=== PATIENT | female | born 1990 | race Caucasian/White ===

== ENCOUNTER 2019-04-06 19:18 | Emergency (ER) | payer OTHER ==
[2019-04-06 19:49] VITALS: RESP 16
[2019-04-06] MEDS ORDERED: KETOROLAC 30 MG/ML 1 ML VIAL IVP STA (21:19)
[2019-04-06] MEDS ORDERED: METOCLOPRAMIDE 5 MG/ML 2 ML VIAL IVP STA (21:19)
[2019-04-06] MEDS ORDERED: SODIUM CHLORIDE 0.9% 1,000 ML IV ONE (21:19)
[2019-04-06] MEDS ORDERED: diphenhydrAMINE 50 MG/ML 1 ML VIAL IVP STA (21:19)
--- NOTE | 2019-04-06 21:34 | ED ---
Headache HPI - General Chief Complaint: Headache Stated Complaint: headache Time Seen by Provider: 04/06/19 21:02 Mode of arrival: ambulatory Limitations: no limitations - History of Present Illness MD Complaint: headache Onset/Timin -: hour(s) Onset Description: gradual Location: left, frontal Severity: severe Quality: worst headache of life Consistency: constant Improves With: nothing Worsens With: none Context: occurred at rest Treatments Prior to Arrival: other (Ketorolac) - Related Data Home Medications Medication Instructions Recorded Confirmed Escitalopram [Lexapro] 20 mg PO DAILY 04/06/19 04/06/19 Allergies Allergy/AdvReac Type Severity Reaction Status Date / Time No Known Allergies Allergy Verified 04/06/19 21:01 Review of Systems ROS Statement: Those systems with pertinent positive or pertinent negative responses have been documented in the HPI. ROS Other: All systems not noted in ROS Statement are negative. Constitutional: Denies: fever, chills, weakness Eyes: Denies: eye pain, vision change ENT: Denies: ear pain, throat pain, hearing loss, congestion Respiratory: Denies: cough Cardiovascular: Denies: chest pain Gastrointestinal: Denies: abdominal pain, vomiting Musculoskeletal: Denies: back pain Skin: Denies: rash Neurological: Reports: headache. Denies: weakness, numbness, paresthesias, confusion, abnormal gait Past Medical History Past Medical History: No Reported History History of Any Multi-Drug Resistant Organisms: None Reported Past Surgical History: Tubal Ligation Additional Past Surgical History / Comment(s): cleft pallate, Past Psychological History: Depression Smoking Status: Current every day smoker Past Alcohol Use History: Occasional Past Drug Use History: Marijuana General Exam Limitations: no limitations General appearance: alert, in no apparent distress Head exam: Present: atraumatic, normocephalic, normal inspection Eye exam: Present: normal appearance, PERRL, EOMI. Absent: scleral icterus, conjunctival injection, nystagmus, periorbital swelling, periorbital tenderness ENT exam: Present: normal oropharynx, mucous membranes moist Neck exam: Present: normal inspection, full ROM. Absent: tenderness, meningismus Neurological exam: Present: alert, oriented X3, CN II-XII intact, normal gait. Absent: motor sensory deficit Psychiatric exam: Present: normal affect Skin exam: Present: warm, dry, intact, normal color. Absent: rash Course Vital Signs 04/06/19 04/06/19 04/06/19 19:45 19:49 22:25 Temperature 98.1 F Pulse Rate 61 58 L 108 H Respiratory 16 16 16 Rate Blood Pressure 113/74 122/96 134/74 O2 Sat by Pulse 98 100 96 Oximetry Medical Decision Making - Medical Decision Making After discussions of risks, benefits, indications, patient is declining to have a lumbar puncture performed. She does understand the rationale. She understands that she can return at any time to have the procedure performed. We discussed appropriate follow-up, further care and return parameters. Disposition Clinical Impression: Headache Disposition: HOME SELF-CARE Condition: Good Instructions (If sedation given, give patient instructions): Acute Headache (ED) Is patient prescribed a controlled substance at d/c from ED?: No Referrals: María Elena Rees NPC [Nurse Practitioner] - 1-2 days Deya Hill MD [STAFF PHYSICIAN] - 1-2 days
--- NOTE | 2019-04-06 21:39 | CT ---
EXAMINATION TYPE: CT brain wo con DATE OF EXAM: 04/06/2019 COMPARISON: 05/02/2015 HISTORY: headache CT DLP: 1098.4 mGycm. Automated Exposure Control for Dose Reduction was Utilized. TECHNIQUE: CT scan of the head is performed without contrast. FINDINGS: Ventricles and sulci appear normal. There is no mass effect nor midline shift. There is no sign of intracranial hemorrhage. The calvarium is intact. IMPRESSION: Negative head CT scan. No change.
[2019-04-06 23:32] VITALS: BP 122/90; PULSE 68; TEMP 98
== END 2019-04-06 23:34 | disposition home or self-care (01) ==
LOC: EC 19:18
DX: R51 Headache (principal); F32.9 Major depressive disorder, single episode, unspecified; F17.200 Nicotine dependence, unspecified, uncomplicated; Z53.29 Procedure and treatment not carried out because of patient's decision for other reasons; Z79.899 Other long term (current) drug therapy
CPT/HCPCS: 99284; 96374; 96375 ×2; 96361 ×2; 70450; J1200; J2765; J1885

== ENCOUNTER 2019-04-13 09:37 | Emergency (ER) | payer OTHER ==
[2019-04-13] MEDS ORDERED: ONDANSETRON 4 MG/2 ML VIAL IVP STA (10:24)
[2019-04-13] MEDS ORDERED: SODIUM CHLORIDE 0.9% 1,000 ML IV ONE (10:25)
[2019-04-13] MEDS ORDERED: DIAZEPAM 5 MG/ML 2 ML INJ IVP STA (10:25)
--- NOTE | 2019-04-13 11:04 | ED ---
Headache HPI - General Chief Complaint: Headache Stated Complaint: Headache/vomiting Time Seen by Provider: 04/13/19 10:05 Mode of arrival: ambulatory Limitations: no limitations - History of Present Illness Initial Comments: 28yo female presenting for vomiting. Patient states that she was evaluated one week prior for headache. Patient states that she has had a headache on and off since her discharge she states it is much less than when she initially presented. She states she had 3 beers last night then an episode of vomiting around 10PM. Pt states that she vomiting this morning again x3. She states she has had a headache today, dull aching no radiation. She denies fever, IVDU, upper respiratory symptoms, chest pain, dizziness or visual changes diplopia she denies any head trauma she denies muscle weakness of the upper or lower extremities. Denies any sensation differences different speech or memory. Remaining review of system negative. Pt states that her dad does have a history of brain aneursym and she wanted to ensure this was not the cause. Pt state she was told she might need an lumbar puncture at her last visit, but states she did not and does not want this today when we were speaking on history taking. - Related Data Home Medications Medication Instructions Recorded Confirmed Escitalopram [Lexapro] 20 mg PO DAILY 04/06/19 04/13/19 ALPRAZolam [Xanax] 0.25 mg PO DAILY PRN 04/13/19 04/13/19 Allergies Allergy/AdvReac Type Severity Reaction Status Date / Time No Known Allergies Allergy Verified 04/13/19 10:00 Review of Systems ROS Statement: Those systems with pertinent positive or pertinent negative responses have been documented in the HPI. ROS Other: All systems not noted in ROS Statement are negative. Past Medical History Past Medical History: No Reported History History of Any Multi-Drug Resistant Organisms: None Reported Past Surgical History: Tubal Ligation Additional Past Surgical History / Comment(s): cleft palate, Past Psychological History: Depression Smoking Status: Current every day smoker Past Alcohol Use History: Occasional Past Drug Use History: Marijuana General Exam - General Exam Comments Initial Comments: General: The patient is awake and alert, in no distress, and does not appear acutely ill. Eye: +3 mm pupils are equal, round and reactive to light, extra-ocular movements are intact. No nystagmus. There is normal conjunctiva bilaterally. No signs of icterus. Ears, nose, mouth and throat: There are moist mucous membranes and no oral lesions. Neck: The neck is supple, there is no tenderness or JVD. Cardiovascular: There is a regular rate and rhythm. No murmur, rub or gallop is appreciated. Respiratory: Lungs are clear to auscultation, respirations are non-labored, breath sounds are equal. No wheezes, stridor, rales, or rhonchi Gastrointestinal: Soft, non-distended, non-tender abdomen without masses or organomegaly noted. There is no rebound or guarding present. No CVA tenderness. Bowel sounds are unremarkable. Musculoskeletal: Normal ROM, no tenderness. Strength 5/5. Sensation intact. Pulses equal bilaterally 2+. Neurological: A&O x 3. CN II-XII intact, memory intact to immediately, intermediate and machine long goods helper recall. Able to follow simple verbal. Able to name a common object (pen). High quality, labial (pa) and lingual (la) speech. Low quality posterior pharynx/larynx (ga) voice sounds. Able to express general knowledge (days in a week). No hemineglect or inattention noted. Finger agnosia (-) and spatially oriented (identified L index finger touched R shoulder with L index finger). Light touch and temperature sensation present over the face, chest, abdomen, back, UE bilaterally, and LE bilaterally. Able to localize point during point localization b/l and extinction. No visible bulk atrophy, hypertrophy, fasciculations, or myoclonus of the UE or LE b/l. Full PROM in UE and LE b/l. Bilateral muscle strength 5/5 for the following muscles: deltoid, biceps, triceps, brachioradialis, wrist extensors/flexor, hip flexor, hip abductors/adductors, hamstrings, quadriceps, feet dorsiflexors/plantar flexors. Finger to nose, finger to the examiners finger, and heel to rush coordinated and accurate b/l. Coordinated and even demonstration of hand flip, finger to thumb, and toe tap b/l. Gait is coordinated and even in stride with tandem, toe and heel walk. Maintains balance with monopedal stance. (-) Romberg. (-) pronator drift. No nuchal rigidity. Skin: Skin is warm and dry and no rashes or lesions are noted. Psychiatric: Cooperative, appropriate mood & affect, normal judgment. Limitations: no limitations Course Vital Signs 04/13/19 04/13/19 09:52 12:25 Temperature 97.9 F 98.5 F Pulse Rate 73 57 L Respiratory 20 16 Rate Blood Pressure 133/92 111/74 O2 Sat by Pulse 100 100 Oximetry Medical Decision Making - Medical Decision Making 28-year-old female presented for on-and-off headache for the past week. Patient states she currently has a dull aching headache. Denies this coming suddenly R being worse headache of life. Patient has not had vomiting in the emergency department but did prior to arrival. Patient given antiemetics. Patient states she feels [facility] intentionally in her neck she has no difficulty moving n ext eyes photophobia negative ski and Kernig sign. Patient has no signs of toxicity she is well-appearing. Neuro exam was performed revealing no masses. CT imaging was obtained and family history of aneurysm. This revealed no aneurysm. Pt then given toradol. Pt state she has zero headache upon r eevaluation. States feeling better. I recommended outpatient primary care f/u with possible neurology referral if she has persistent symptoms. Patient is to return to emergency department if she develops fever or has worsening headache or any other concerning signs or symptoms. Patient request understand. Patient states she is comfortable discharge. Patient was discharged appearing well. I did discuss the case with Dr. Ramsey prior to discharge. - Lab Data Result diagrams: 04/13/19 10:50 04/13/19 10:50 Lab Results 04/13/19 04/13/19 04/13/19 Range/Units 10:50 10:50 10:50 WBC 6.8 (3.8-10.6) k/uL RBC 4.37 (3.80-5.40) m/uL Hgb 13.0 (11.4-16.0) gm/dL Hct 38.9 (34.0-46.0) % MCV 88.9 (80.0-100.0) fL MCH 29.8 (25.0-35.0) pg MCHC 33.5 (31.0-37.0) g/dL RDW 15.4 (11.5-15.5) % Plt Count 278 (150-450) k/uL Neutrophils % 78 % Lymphocytes % 16 % Monocytes % 4 % Eosinophils % 1 % Basophils % 0 % Neutrophils # 5.3 (1.3-7.7) k/uL Lymphocytes # 1.1 (1.0-4.8) k/uL Monocytes # 0.3 (0-1.0) k/uL Eosinophils # 0.1 (0-0.7) k/uL Basophils # 0.0 (0-0.2) k/uL Sodium 139 (137-145) mmol/L Potassium 4.1 (3.5-5.1) mmol/L Chloride 104 (98-107) mmol/L Carbon Dioxide 28 (22-30) mmol/L Anion Gap 7 mmol/L BUN 17 (7-17) mg/dL Creatinine 0.56 (0.52-1.04) mg/dL Est GFR (CKD-EPI)AfAm >90 (>60 ml/min/1.73 sqM) Est GFR (CKD-EPI)NonAf >90 (>60 ml/min/1.73 sqM) Glucose 88 (74-99) mg/dL Calcium 9.0 (8.4-10.2) mg/dL Total Bilirubin 0.7 (0.2-1.3) mg/dL AST 25 (14-36) U/L ALT 25 (9-52) U/L Alkaline Phosphatase 58 (38-126) U/L Total Protein 7.4 (6.3-8.2) g/dL Albumin 4.6 (3.5-5.0) g/dL Urine Color Urine Appearance (Clear) Urine pH (5.0-8.0) Ur Specific Tucker (1.001-1.035) Urine Protein (Negative) Urine Glucose (UA) (Negative) Urine Ketones (Negative) Urine Blood (Negative) Urine Nitrite (Negative) Urine Bilirubin (Negative) Urine Urobilinogen (<2.0) mg/dL Ur Leukocyte Esterase (Negative) Urine RBC (0-5) /hpf Urine WBC (0-5) /hpf Ur Squamous Epith Cells (0-4) /hpf Urine Mucus (None) /hpf Urine HCG, Qual Not Detected (Not Detectd) 04/13/19 Range/Units 10:50 WBC (3.8-10.6) k/uL RBC (3.80-5.40) m/uL Hgb (11.4-16.0) gm/dL Hct (34.0-46.0) % MCV (80.0-100.0) fL MCH (25.0-35.0) pg MCHC (31.0-37.0) g/dL RDW (11.5-15.5) % Plt Count (150-450) k/uL Neutrophils % % Lymphocytes % % Monocytes % % Eosinophils % % Basophils % % Neutrophils # (1.3-7.7) k/uL Lymphocytes # (1.0-4.8) k/uL Monocytes # (0-1.0) k/uL Eosinophils # (0-0.7) k/uL Basophils # (0-0.2) k/uL Sodium (137-145) mmol/L Potassium (3.5-5.1) mmol/L Chloride (98-107) mmol/L Carbon Dioxide (22-30) mmol/L Anion Gap mmol/L BUN (7-17) mg/dL Creatinine (0.52-1.04) mg/dL Est GFR (CKD-EPI)AfAm (>60 ml/min/1.73 sqM) Est GFR (CKD-EPI)NonAf (>60 ml/min/1.73 sqM) Glucose (74-99) mg/dL Calcium (8.4-10.2) mg/dL Total Bilirubin (0.2-1.3) mg/dL AST (14-36) U/L ALT (9-52) U/L Alkaline Phosphatase (38-126) U/L Total Protein (6.3-8.2) g/dL Albumin (3.5-5.0) g/dL Urine Color Yellow Urine Appearance Clear (Clear) Urine pH 7.5 (5.0-8.0) Ur Specific Tucker 1.021 (1.001-1.035) Urine Protein Trace H (Negative) Urine Glucose (UA) Negative (Negative) Urine Ketones Trace H (Negative) Urine Blood Negative (Negative) Urine Nitrite Negative (Negative) Urine Bilirubin Negative (Negative) Urine Urobilinogen 2.0 (<2.0) mg/dL Ur Leukocyte Esterase Trace H (Negative) Urine RBC 2 (0-5) /hpf Urine WBC 2 (0-5) /hpf Ur Squamous Epith Cells 3 (0-4) /hpf Urine Mucus Occasional H (None) /hpf Urine HCG, Qual (Not Detectd) Disposition Clinical Impression: Headache, Vomiting Disposition: HOME SELF-CARE Condition: Good Instructions (If sedation given, give patient instructions): Acute Headache (ED) Additional Instructions: Please use medication as discussed. Please follow-up with family doctor in the next 2 days. Please return to emergency room if the symptoms increase or worsen or for any other concerns. Is patient prescribed a controlled substance at d/c from ED?: No Referrals: Britta Arroyo III, MD [Primary Care Provider] - 1-2 days Time of Disposition: 12:08
[2019-04-13 11:05] LABS: Basophils % (A) 0 %; Eosinophils # (A) 0.1 k/uL (0-0.7); Eosinophils % (A) 1 %; HCT 38.9 % (34.0-46.0); Lymphocytes # (A) 1.1 k/uL (1.0-4.8); Lymphocytes % (A) 16 %; MCH 29.8 pg (25.0-35.0); MCHC 33.5 g/dL (31.0-37.0); MCV 88.9 fL (80.0-100.0); Mean Platelet Volume 6.9; Monocytes # (A) 0.3 k/uL (0-1.0); Monocytes % (A) 4 %; Neutrophils # (A) 5.3 k/uL (1.3-7.7); Neutrophils % (A) 78 %; Platelet Count 278 k/uL (150-450); RBC 4.37 m/uL (3.80-5.40); RDW 15.4 % (11.5-15.5); WBC 6.8 k/uL (3.8-10.6)
[2019-04-13 11:06] LABS: Appearance,Urine Clear (Clear); Bilirubin,Urine Negative (Negative); Blood,Urine Negative (Negative); Color,Urine Yellow; Glucose,Urine (UA) Negative (Negative); Ketones,Urine Trace (Negative); Leukocyte Esterase,Urine Trace (Negative); Mucus,Urine Occasional /hpf; Nitrite,Urine Negative (Negative); PH, Urine 7.5 (5.0-8.0); Protein,Urine Trace (Negative); RBC,Urine 2 /hpf (0-5); Specific Gravity,Urine 1.021 (1.001-1.035); Squamous Epithelial Cell,Urine 3 /hpf (0-4); WBC,Urine 2 /hpf (0-5)
[2019-04-13 11:19] LABS: ALT 25 U/L (9-52); AST 25 U/L (14-36); Albumin 4.6 g/dL (3.5-5.0); Alkaline Phosphatase 58 U/L (38-126); Anion Gap 7 mmol/L; Blood Urea Nitrogen 17 mg/dL (7-17); Carbon Dioxide 28 mmol/L (22-30); Chloride 104 mmol/L (98-107); Glucose 88 mg/dL (74-99); Potassium 4.1 mmol/L (3.5-5.1); Sodium 139 mmol/L (137-145); Total Bilirubin 0.7 mg/dL (0.2-1.3); Total Protein 7.4 g/dL (6.3-8.2)
--- NOTE | 2019-04-13 11:50 | CT ---
CT angiogram of the [facility] [place] HISTORY: Family history of brain aneurysm Helical acquisition through the brain during dynamic administration of 50 cc Isovue 370 IV. Three-dim ensional reconstructions performed on an alternate workstation. Automated exposure control for dose r eduction. DLP 1294.[address] brain 04/06/2019 Anterior posterior circulation are patent, the right vertebral artery is dominant. No evident aneurys m, dissection, or embolism. Postop changes are noted to the maxillary sinuses. Inflammatory change pr esent in the ethmoid air cells. No abnormal enhancement following contrast administration. IMPRESSION: Unremarkable [facility] [place] [facility] [place] CTA
[2019-04-13] MEDS ORDERED: KETOROLAC 30 MG/ML 1 ML VIAL IVP STA (11:52)
[2019-04-13 12:26] VITALS: BP 111/74; PULSE 57; RESP 16; TEMP 98.5
== END 2019-04-13 12:45 | disposition home or self-care (01) ==
LOC: EC 09:37
DX: R51 Headache (principal); R11.10 Vomiting, unspecified; F32.9 Major depressive disorder, single episode, unspecified; F17.200 Nicotine dependence, unspecified, uncomplicated; Z79.899 Other long term (current) drug therapy
CPT/HCPCS: 36415; 80053; 85025; 81001; 81025; 70496; 99284; 96374; 96375 ×2; 96361 ×2; J3360; J2405; J1885; Q9967

== ENCOUNTER → 2019-12-29 | Day surgery (SDC) | payer OTHER ==
[2019-12-28 10:41] VITALS: BMI 25.2
--- NOTE | 2019-12-28 17:48 | P.HPOB ---
History of Present Illness H&P Date: 12/28/19 Chief Complaint: menorrhagia 29 year old presents for D&C hysteroscopy and endometrial ablation with NovaSure. Review of Systems All systems: negative Constitutional: Denies chills, Denies fever Eyes: denies blurred vision, denies pain Ears, nose, mouth and throat: Denies headache, Denies sore throat Cardiovascular: Denies chest pain, Denies shortness of breath Respiratory: Denies cough Gastrointestinal: Denies abdominal pain, Denies diarrhea, Denies nausea, Denies vomiting Genitourinary: Denies dysuria, Denies hematuria Musculoskeletal: Denies myalgias Integumentary: Denies pruritus, Denies rash Neurological: Denies numbness, Denies weakness Psychiatric: Denies anxiety, Denies depression Endocrine: Denies fatigue, Denies weight change Past Medical History Past Medical History: No Reported History Additional Past Medical History / Comment(s): heavy periods History of Any Multi-Drug Resistant Organisms: None Reported Past Surgical History: Tubal Ligation Additional Past Surgical History / Comment(s): cleft palate Past Anesthesia/Blood Transfusion Reactions: No Reported Reaction Smoking Status: Current every day smoker - Past Family History Mother Family Medical History: No Reported History Medications and Allergies Home Medications Medication Instructions Recorded Confirmed Type Escitalopram [Lexapro] 10 mg PO DAILY 04/06/19 12/28/19 History clonazePAM [KlonoPIN] 0.5 mg PO DAILY PRN 12/28/19 12/28/19 History Allergies Allergy/AdvReac Type Severity Reaction Status Date / Time No Known Allergies Allergy Verified 12/28/19 10:35 Exam Osteopathic Statement: *. No significant issues noted on an osteopathic structural exam other than those noted in the History and Physical/Consult. Intake and Output 12/28/19 12/28/19 12/28/19 06:59 14:59 22:59 Other: Weight 73.028 kg HEart: RRR Lungs: CTAB Abdomen: soft, nontender Extremeties: neg jacque's Assessment and Plan (1) Menorrhagia Status: Acute Code(s): N92.0 - EXCESSIVE AND FREQUENT MENSTRUATION WITH REGULAR CYCLE SNOMED Code(s): 304661061 Plan: 1. D&C hysteroscopy and endometrial ablation with NovaSure
[~2019-12-29] MED LIST: DEXAMETHASONE SOD PHOSPHATE 10 MG/ML 1 ML VIAL IV ONE; HYDROmorphone 0.5 MG/0.5 ML SYRINGE IVP PRN; KETOROLAC 30 MG/ML 1 ML VIAL IVP SCH; KETOROLAC 30 MG/ML 1 ML VIAL ONE; LACTATED RINGERS 1,000 ML IV SCH; LIDOCAINE 1% (10MG/ML) FOR IV START INTRADERMA PRN; METOCLOPRAMIDE 5 MG/ML 2 ML VIAL IVP PRN; MIDAZOLAM 2 MG/2 ML VIAL IV PRN; MIDAZOLAM 2 MG/2 ML VIAL ONE; ONDANSETRON 4 MG/2 ML VIAL IVP ONE; PROPOFOL 10 MG/ML 20 ML VIAL IV ONE; Pre Op ABX Message 1 EACH MISC MISCELLANE ONE; SODIUM CHLORIDE 0.9% 1,000 ML IV ONE; fentaNYL (PF) 50 MCG/ML 2 ML AMP ONE
--- NOTE | 2019-12-29 10:13 | P.OP ---
Date of Procedure: 12/29/19 Preoperative Diagnosis: 1. menorrhagia Postoperative Diagnosis: 1. Menorrhagia Procedure(s) Performed: D&C, hysteroscopy, endometrial ablation with NovaSure Anesthesia: MAC Surgeon: Bonita Kebede Estimated Blood Loss (ml): 3 IV fluids (ml): 300 Urine output (ml): 0 Pathology: other (Endometrial curettings) Condition: stable Disposition: PACU Operative Findings: Uterus sounded 8 cm. Cavity length 5.5 cm, width 3.5 cm, power 106 W, time of ablation 58 seconds. Adequate ablation after NovaSure. Description of Procedure: Patient is taken the operating room where general anesthesia was obtained without difficulty. She was prepped and draped in normal sterile fashion dorsal lithotomy position, legs placed in the candy cane stirrups. Bladder was drained of all urine. Weighted speculum placed in the vagina and the anterior lip the cervix was grasped with serial tooth tenaculum. The uterus sounded to 8 cm and the cervix under 2.5 cm making the cavity length 5.5 cm. The cervix was dilated to #8 Hegar dilator. Hysteroscopy was then performed. Both ostia were visualized and there was a smooth contour of the uterus. Sharp curet was then gently used to obtain endometrial curettings. The NovaSure was introduced into the uterus with a cavity length of 5.5 cm, width 3.5 cm. after cavity assessment was passed, the time of ablation was 58 seconds at 106 W. Hysteroscopy was again performed and adequate ablation was noted. All instruments removed from the vagina. Patient tolerated the procedure well, sponge and instrument counts were correct 2 and she was taken to recovery in stable condition.
[2019-12-29 10:28] VITALS: TEMP 97.2
[2019-12-29 10:33] VITALS: RESP 16
[2019-12-29 11:25] VITALS: BP 113/72; PULSE 53
== END | disposition home or self-care (01) ==
LOC: OR 08:27
PROVIDERS: ATTEND Obstetrics & Gynecology
DX: N92.0 Excessive and frequent menstruation with regular cycle (principal); Z98.51 Tubal ligation status; N85.9 Noninflammatory disorder of uterus, unspecified; F17.210 Nicotine dependence, cigarettes, uncomplicated; Z79.899 Other long term (current) drug therapy
CPT/HCPCS: 81025; 88305; 58563; J2250; J1100; J2405; J3010; J1885; J2704

== ENCOUNTER 2020-03-26 20:06 | Observation (INO) | payer OTHER ==
--- NOTE | 2020-03-26 20:49 | ED ---
General Adult HPI - General Chief complaint: Abdominal Pain Stated complaint: Abd pain Time Seen by Provider: 03/26/20 20:40 Source: patient Mode of arrival: ambulatory Limitations: no limitations - History of Present Illness Initial comments: Patient presents to the ED complaining of having constant epigastric abdominal pain for the past 3 days or so. Patient states that her pain is worse with ambulation. Patient also reports having greener than usual stool recently. Patient denies trauma or injury, radiation of her pain, fever or chills, chest pain, dyspnea, cough or cold symptoms, lower abdominal pain, back or flank pain, nausea or vomiting, diarrhea or constipation, bloody or melanotic stool, dysuria or urinary symptoms, or any other symptoms or complaints. Patient states that she has had a tubal ligation in the past. - Related Data Home Medications Medication Instructions Recorded Confirmed clonazePAM [KlonoPIN] 0.5 mg PO BID PRN 12/28/19 03/26/20 Escitalopram [Lexapro] 10 mg PO DAILY 03/26/20 03/26/20 buPROPion HCL [Wellbutrin SR] 150 mg PO QAM 03/26/20 03/26/20 Allergies Allergy/AdvReac Type Severity Reaction Status Date / Time No Known Allergies Allergy Verified 03/26/20 22:11 Review of Systems ROS Statement: Those systems with pertinent positive or pertinent negative responses have been documented in the HPI. ROS Other: All systems not noted in ROS Statement are negative. Past Medical History Past Medical History: No Reported History Additional Past Medical History / Comment(s): heavy periods History of Any Multi-Drug Resistant Organisms: None Reported Past Surgical History: Tubal Ligation, Uterine Ablation Additional Past Surgical History / Comment(s): cleft palate Past Anesthesia/Blood Transfusion Reactions: No Reported Reaction Past Psychological History: ADD/ADHD, Anxiety, Depression Smoking Status: Current every day smoker Past Alcohol Use History: Occasional Past Drug Use History: Marijuana - Past Family History Mother Family Medical History: No Reported History General Exam Limitations: no limitations General appearance: alert, in no apparent distress Head exam: Present: atraumatic, normocephalic Eye exam: Present: normal appearance, EOMI ENT exam: Present: mucous membranes moist Neck exam: Present: other (Trachea is in midline) Respiratory exam: Present: normal lung sounds bilaterally. Absent: respiratory distress, wheezes, rales, rhonchi Cardiovascular Exam: Present: regular rate, normal rhythm, normal heart sounds, other (Normal radial pulses bilaterally) GI/Abdominal exam: Present: soft, normal bowel sounds, other (Moderate epigastric abdominal tenderness). Absent: distended, guarding, rebound Extremities exam: Absent: tenderness, pedal edema, calf tenderness Back exam: Absent: CVA tenderness (R), CVA tenderness (L) Neurological exam: Present: alert, oriented X3. Absent: motor sensory deficit Psychiatric exam: Present: normal affect, normal mood Skin exam: Present: warm, dry, intact, normal color Course Vital Signs 03/26/20 03/26/20 20:17 22:26 Temperature 97.3 F L Pulse Rate 72 63 Respiratory 18 18 Rate Blood Pressure 115/71 105/73 O2 Sat by Pulse 97 98 Oximetry - Reevaluation(s) Reevaluation #1: 03/26/20 22:35 Case, H&P and test results/ultrasound findings were discussed with Dr. Cesar (gen surg). She recommends/accepts hospital admission. She recommends repeating the patient's liver function tests in the morning. She has no further recommendations at this time. 03/26/20 22:55 Patient denies development of any new pain or symptoms while in the ED. Patient states that her pain has not improved with the GI cocktail that she was given in the ED. I have ordered a dose of IV morphine for the patient. Patient is aware of her test results and my discussion with Dr. Cesar as above. She agrees with hospital admission at this time. Medical Decision Making - Medical Decision Making Given the patient's epigastric tenderness and gallbladder ultrasound findings of wall thickening and pericholecystic fluid, will admit the patient to the hospital for further evaluation and monitoring out of concern for possible acalculous cholecystitis. Patient was given a dose of IV Zosyn in the ED. Dr. Cesar has accepted hospital admission. - Lab Data Result diagrams: 03/26/20 20:47 03/26/20 20:47 Lab Results 03/26/20 03/26/20 03/26/20 Range/Units 20:41 20:41 20:47 WBC 4.0 (3.8-10.6) k/uL RBC 4.19 (3.80-5.40) m/uL Hgb 11.6 (11.4-16.0) gm/dL Hct 37.3 (34.0-46.0) % MCV 89.0 (80.0-100.0) fL MCH 27.8 (25.0-35.0) pg MCHC 31.2 (31.0-37.0) g/dL RDW 15.2 (11.5-15.5) % Plt Count 269 (150-450) k/uL Neutrophils % 54 % Lymphocytes % 34 % Monocytes % 7 % Eosinophils % 3 % Basophils % 1 % Neutrophils # 2.2 (1.3-7.7) k/uL Lymphocytes # 1.4 (1.0-4.8) k/uL Monocytes # 0.3 (0-1.0) k/uL Eosinophils # 0.1 (0-0.7) k/uL Basophils # 0.0 (0-0.2) k/uL Sodium (137-145) mmol/L Potassium (3.5-5.1) mmol/L Chloride (98-107) mmol/L Carbon Dioxide (22-30) mmol/L Anion Gap mmol/L BUN (7-17) mg/dL Creatinine (0.52-1.04) mg/dL Est GFR (CKD-EPI)AfAm (>60 ml/min/1.73 sqM) Est GFR (CKD-EPI)NonAf (>60 ml/min/1.73 sqM) Glucose (74-99) mg/dL Calcium (8.4-10.2) mg/dL Total Bilirubin (0.2-1.3) mg/dL AST (14-36) U/L ALT (4-34) U/L Alkaline Phosphatase (38-126) U/L Total Protein (6.3-8.2) g/dL Albumin (3.5-5.0) g/dL Lipase (23-300) U/L Urine Color Light Yellow Urine Appearance Clear (Clear) Urine pH 6.5 (5.0-8.0) Ur Specific [place] 1.008 (1.001-1.035) Urine Protein Negative (Negative) Urine Glucose (UA) Negative (Negative) Urine Ketones Negative (Negative) Urine Blood Negative (Negative) Urine Nitrite Negative (Negative) Urine Bilirubin Negative (Negative) Urine Urobilinogen <2.0 (<2.0) mg/dL Ur Leukocyte Esterase Negative (Negative) Urine HCG, Qual Not Detected (Not Detectd) 03/26/20 Range/Units 20:47 WBC (3.8-10.6) k/uL RBC (3.80-5.40) m/uL Hgb (11.4-16.0) gm/dL Hct (34.0-46.0) % MCV (80.0-100.0) fL MCH (25.0-35.0) pg MCHC (31.0-37.0) g/dL RDW (11.5-15.5) % Plt Count (150-450) k/uL Neutrophils % % Lymphocytes % % Monocytes % % Eosinophils % % Basophils % % Neutrophils # (1.3-7.7) k/uL Lymphocytes # (1.0-4.8) k/uL Monocytes # (0-1.0) k/uL Eosinophils # (0-0.7) k/uL Basophils # (0-0.2) k/uL Sodium 138 (137-145) mmol/L Potassium 3.4 L (3.5-5.1) mmol/L Chloride 107 (98-107) mmol/L Carbon Dioxide 26 (22-30) mmol/L Anion Gap 5 mmol/L BUN 12 (7-17) mg/dL Creatinine 0.65 (0.52-1.04) mg/dL Est GFR (CKD-EPI)AfAm >90 (>60 ml/min/1.73 sqM) Est GFR (CKD-EPI)NonAf >90 (>60 ml/min/1.73 sqM) Glucose 100 H (74-99) mg/dL Calcium 8.2 L (8.4-10.2) mg/dL Total Bilirubin 0.3 (0.2-1.3) mg/dL AST 27 (14-36) U/L ALT 26 (4-34) U/L Alkaline Phosphatase 48 (38-126) U/L Total Protein 6.5 (6.3-8.2) g/dL Albumin 3.7 (3.5-5.0) g/dL Lipase 131 (23-300) U/L Urine Color Urine Appearance (Clear) Urine pH (5.0-8.0) Ur Specific [place] (1.001-1.035) Urine Protein (Negative) Urine Glucose (UA) (Negative) Urine Ketones (Negative) Urine Blood (Negative) Urine Nitrite (Negative) Urine Bilirubin (Negative) Urine Urobilinogen (<2.0) mg/dL Ur Leukocyte Esterase (Negative) Urine HCG, Qual (Not Detectd) - Radiology Data Radiology results: report reviewed (Gallbladder ultrasound: Severe wall thickening of the gallbladder with pericholecystic fluid; correlate for acalculous cholecystitis) Disposition Clinical Impression: Abdominal pain Narrative: Possible acute cholecystitis Disposition: ADMITTED IP TO THIS [facility] Condition: Stable Is patient prescribed a controlled substance at d/c from ED?: No Referrals: Britta Arroyo III, MD [Primary Care Provider] - 1-2 days Time of Disposition: 22:36
[2020-03-26] MEDS ORDERED: MAG HYDROX/AL HYDROX/SIMETH 30 ML, HYOSCYAMINE ELIXIR 10 ML, LIDOCAINE VISCOUS 2% 10 ML PO STA ×3 (20:51)
[2020-03-26 21:04] LABS: Basophils % (A) 1 %; Eosinophils # (A) 0.1 k/uL (0-0.7); Eosinophils % (A) 3 %; HCT 37.3 % (34.0-46.0); HGB 11.6 gm/dL (11.4-16.0); Lymphocytes # (A) 1.4 k/uL (1.0-4.8); Lymphocytes % (A) 34 %; MCH 27.8 pg (25.0-35.0); MCHC 31.2 g/dL (31.0-37.0); Mean Platelet Volume 7.8; Monocytes # (A) 0.3 k/uL (0-1.0); Monocytes % (A) 7 %; Neutrophils # (A) 2.2 k/uL (1.3-7.7); Neutrophils % (A) 54 %; Platelet Count 269 k/uL (150-450); RBC 4.19 m/uL (3.80-5.40); RDW 15.2 % (11.5-15.5)
[2020-03-26 21:05] LABS: Appearance,Urine Clear (Clear); Bilirubin,Urine Negative (Negative); Blood,Urine Negative (Negative); Color,Urine Light Yellow; Glucose,Urine (UA) Negative (Negative); Ketones,Urine Negative (Negative); Leukocyte Esterase,Urine Negative (Negative); Nitrite,Urine Negative (Negative); PH, Urine 6.5 (5.0-8.0); Protein,Urine Negative (Negative); Specific Gravity,Urine 1.008 (1.001-1.035); Urobilinogen,Urine <2.0 mg/dL (<2.0)
[2020-03-26 21:16] LABS: ALT 26 U/L (4-34); AST 27 U/L (14-36); African American GFR (CKD) >90 (>60 ml/min/1.73 sqM); Albumin 3.7 g/dL (3.5-5.0); Alkaline Phosphatase 48 U/L (38-126); Anion Gap 5 mmol/L; Blood Urea Nitrogen 12 mg/dL (7-17); Calcium 8.2 mg/dL (8.4-10.2); Carbon Dioxide 26 mmol/L (22-30); Chloride 107 mmol/L (98-107); Glucose 100 mg/dL (74-99); Non-African American GFR(CKD) >90 (>60 ml/min/1.73 sqM); Potassium 3.4 mmol/L (3.5-5.1); Sodium 138 mmol/L (137-145); Total Bilirubin 0.3 mg/dL (0.2-1.3); Total Protein 6.5 g/dL (6.3-8.2)
--- NOTE | 2020-03-26 21:46 | US ---
EXAMINATION TYPE: US gallbladder DATE OF EXAM: 03/26/2020 COMPARISON: NONE CLINICAL HISTORY: Upper abdominal pain. RUQ pain 3 days EXAM MEASUREMENTS: Liver Length: 16.4 cm Gallbladder Wall: 1.0 cm CBD: 0.4 cm Right Kidney: 11.5 x 5.2 x 5.5 cm Pancreas: Tail obscured by overlying bowel gas, visualized portions wnl Liver: wnl Gallbladder: Gallbladder wall is thickened with pericholecystic fluid visualized. No stones visualiz ed Evidence for sonographic Tinoco's sign: Yes CBD: wnl Right Kidney: Prominent, hyperechoic medullary pyramids which is a nonspecific finding. IMPRESSION: 1. Severe wall thickening of the gallbladder with pericholecystic fluid. Correlate for acalculous cho lecystitis.
[2020-03-26] MEDS ORDERED: NALOXONE 0.4 MG/ML 1 ML VIAL IV PRN (22:36)
[2020-03-26] MEDS ORDERED: ONDANSETRON 4 MG/2 ML VIAL IVP PRN (22:36)
[2020-03-26] MEDS ORDERED: PIPERACILLIN-TAZOBACTAM 3.375 GM in SODIUM CHLORIDE 0.9% 100 ML IVPB STA (22:38)
[2020-03-26] MEDS ORDERED: SODIUM CHLORIDE 0.9% 1,000 ML IV SCH (22:45)
[2020-03-26] MEDS ORDERED: MORPHINE SULFATE 4 MG/ML SYRINGE IVP STA (22:53)
[2020-03-27] MEDS: MORPHINE SULFATE 4 MG/ML SYRINGE IV PRN ×3 (03:44→13:34)
[2020-03-27 06:50] LABS: Basophils % (A) 0 %; Eosinophils # (A) 0.1 k/uL (0-0.7); Eosinophils % (A) 3 %; HCT 35.2 % (34.0-46.0); HGB 11.5 gm/dL (11.4-16.0); Hypochromasia Slight; Lymphocytes # (A) 1.8 k/uL (1.0-4.8); Lymphocytes % (A) 43 %; MCH 28.5 pg (25.0-35.0); MCHC 32.8 g/dL (31.0-37.0); MCV 86.9 fL (80.0-100.0); Monocytes # (A) 0.3 k/uL (0-1.0); Monocytes % (A) 6 %; Neutrophils # (A) 1.9 k/uL (1.3-7.7); Neutrophils % (A) 46 %; Platelet Count 255 k/uL (150-450); RBC 4.05 m/uL (3.80-5.40); RDW 15.1 % (11.5-15.5); WBC 4.1 k/uL (3.8-10.6)
[2020-03-27 07:00] LABS: ALT 24 U/L (4-34); AST 24 U/L (14-36); African American GFR (CKD) >90 (>60 ml/min/1.73 sqM); Albumin 3.5 g/dL (3.5-5.0); Alkaline Phosphatase 52 U/L (38-126); Anion Gap 4 mmol/L; Blood Urea Nitrogen 12 mg/dL (7-17); Carbon Dioxide 28 mmol/L (22-30); Chloride 108 mmol/L (98-107); Glucose 83 mg/dL (74-99); Non-African American GFR(CKD) >90 (>60 ml/min/1.73 sqM); Potassium 3.6 mmol/L (3.5-5.1); Sodium 140 mmol/L (137-145); Total Bilirubin 0.4 mg/dL (0.2-1.3); Total Protein 6.3 g/dL (6.3-8.2)
--- NOTE | 2020-03-27 09:42 | P.GSHP ---
History of Present Illness H&P Date: 03/27/20 The patient is a 29-year-old female who is been having pain in the abdomen for the last 3-4 days. She tried to wait it out but it got progressively worse and was radiating through to the back. On the car ride and bumps caused increasing pain. She came into the ER and ultrasound shows acute cholecystitis. She's never had gallbladder attacks in the past. Denies fevers or chills. Has had some looser stools. Denies jaundice, tea-colored urine or acholic stool, no blood in the stool or dark tarry stool. - Review of Systems All systems: negative Past Medical History Past Medical History: No Reported History Additional Past Medical History / Comment(s): heavy periods History of Any Multi-Drug Resistant Organisms: None Reported Past Surgical History: Tubal Ligation, Uterine Ablation Additional Past Surgical History / Comment(s): cleft palate Past Anesthesia/Blood Transfusion Reactions: No Reported Reaction Past Psychological History: ADD/ADHD, Anxiety, Depression Smoking Status: Current every day smoker Past Alcohol Use History: Occasional Additional Past Alcohol Use History / Comment(s): smoker for 10 years <1/2ppd Past Drug Use History: Marijuana - Past Family History Mother Family Medical History: No Reported History Medications and Allergies Home Medications Medication Instructions Recorded Confirmed Type clonazePAM [KlonoPIN] 0.5 mg PO BID PRN 12/28/19 03/26/20 History Escitalopram [Lexapro] 10 mg PO DAILY 03/26/20 03/26/20 History buPROPion HCL [Wellbutrin SR] 150 mg PO QAM 03/26/20 03/26/20 History Allergies Allergy/AdvReac Type Severity Reaction Status Date / Time No Known Allergies Allergy Verified 03/26/20 22:11 Surgical - Exam Osteopathic Statement: *. No significant issues noted on an osteopathic structural exam other than those noted in the History and Physical/Consult. Vital Signs Temp Pulse Resp BP Pulse Ox 97.3 F L 72 18 115/71 97 03/26/20 20:17 03/26/20 20:17 03/26/20 20:17 03/26/20 20:17 03/26/20 20:17 - General well developed, well nourished, no distress - Eyes normal ocular movement - Neck trachea midline - Respiratory normal respiratory effort, clear to auscultation - Cardiovascular Rhythm: regular - Abdomen Abdomen: soft, tender (Right upper quadrant), guarding (Mild voluntary), no rebound - Psychiatric oriented to time, oriented to person, oriented to place, speech is normal, memory intact Results - Labs 03/27/20 05:54 03/27/20 05:54 Abnormal Lab Results - Last 24 Hours (Table) 03/26/20 03/27/20 Range/Units 20:47 05:54 Potassium 3.4 L (3.5-5.1) mmol/L Chloride 108 H (98-107) mmol/L Glucose 100 H (74-99) mg/dL Calcium 8.2 L 8.0 L (8.4-10.2) mg/dL Diabetes panel 03/26/20 03/27/20 Range/Units 20:47 05:54 Sodium 138 140 (137-145) mmol/L Potassium 3.4 L 3.6 (3.5-5.1) mmol/L Chloride 107 108 H (98-107) mmol/L Carbon Dioxide 26 28 (22-30) mmol/L BUN 12 12 (7-17) mg/dL Creatinine 0.65 0.76 (0.52-1.04) mg/dL Glucose 100 H 83 (74-99) mg/dL Calcium 8.2 L 8.0 L (8.4-10.2) mg/dL AST 27 24 (14-36) U/L ALT 26 24 (4-34) U/L Alkaline Phosphatase 48 52 (38-126) U/L Total Protein 6.5 6.3 (6.3-8.2) g/dL Albumin 3.7 3.5 (3.5-5.0) g/dL Calcium panel 03/26/20 03/27/20 Range/Units 20:47 05:54 Calcium 8.2 L 8.0 L (8.4-10.2) mg/dL Albumin 3.7 3.5 (3.5-5.0) g/dL Pituitary panel 03/26/20 03/27/20 Range/Units 20:47 05:54 Sodium 138 140 (137-145) mmol/L Potassium 3.4 L 3.6 (3.5-5.1) mmol/L Chloride 107 108 H (98-107) mmol/L Carbon Dioxide 26 28 (22-30) mmol/L BUN 12 12 (7-17) mg/dL Creatinine 0.65 0.76 (0.52-1.04) mg/dL Glucose 100 H 83 (74-99) mg/dL Calcium 8.2 L 8.0 L (8.4-10.2) mg/dL Adrenal panel 03/26/20 03/27/20 Range/Units 20:47 05:54 Sodium 138 140 (137-145) mmol/L Potassium 3.4 L 3.6 (3.5-5.1) mmol/L Chloride 107 108 H (98-107) mmol/L Carbon Dioxide 26 28 (22-30) mmol/L BUN 12 12 (7-17) mg/dL Creatinine 0.65 0.76 (0.52-1.04) mg/dL Glucose 100 H 83 (74-99) mg/dL Calcium 8.2 L 8.0 L (8.4-10.2) mg/dL Total Bilirubin 0.3 0.4 (0.2-1.3) mg/dL AST 27 24 (14-36) U/L ALT 26 24 (4-34) U/L Alkaline Phosphatase 48 52 (38-126) U/L Total Protein 6.5 6.3 (6.3-8.2) g/dL Albumin 3.7 3.5 (3.5-5.0) g/dL - Imaging US - abdomen: report reviewed Assessment and Plan (1) Acute cholecystitis Current Visit: Yes Status: Acute Code(s): K81.0 - ACUTE CHOLECYSTITIS SNOMED Code(s): 53242658 Plan: With the pain, gallbladder wall thickening and pericholecystic fluid likely has a small stone impacted into the cystic duct are Brady's pouch. Recommended laparoscopic cholecystectomy. The procedure, risks, complications were discussed. Questions were encouraged and answered. I'll do that for her today. If she tolerates a surgery postoperatively, we'll let her go home later today.
[2020-03-27] MEDS ORDERED: PROPOFOL 10 MG/ML 20 ML VIAL IV ONE (14:10)
[2020-03-27] MEDS ORDERED: ONDANSETRON 4 MG/2 ML VIAL ONE (14:10)
[2020-03-27] MEDS ORDERED: SUCCINYLCHOLINE CHLORIDE 100 MG/5 ML SYR IV ONE (14:10)
[2020-03-27] MEDS ORDERED: NEOSTIGMINE 1 MG/ML 10 ML VIAL ONE (14:10)
[2020-03-27] MEDS ORDERED: ceFAZolin 1,000 MG VIAL ONE (14:10)
[2020-03-27] MEDS ORDERED: ROCURONIUM BROMIDE 10 MG/ML 5 ML VIAL IV ONE (14:10)
[2020-03-27] MEDS ORDERED: MIDAZOLAM 2 MG/2 ML VIAL ONE (14:10)
[2020-03-27] MEDS ORDERED: KETOROLAC 30 MG/ML 1 ML VIAL ONE (14:10)
[2020-03-27] MEDS ORDERED: HYDROmorphone (PF) 1 MG/ML ONE (14:10)
[2020-03-27] MEDS ORDERED: LIDOCAINE 1% INJ 10MG/ML (20 ML MDV) ONE (14:10)
[2020-03-27] MEDS ORDERED: IV FLUID CONTINUATION 500 ML IV ONE (14:10)
[2020-03-27] MEDS ORDERED: DEXAMETHASONE SOD PHOS (MDV) 100 MG/10 ML VIAL ONE (14:10)
[2020-03-27] MEDS ORDERED: fentaNYL (PF) 50 MCG/ML 2 ML AMP ONE (14:10)
[2020-03-27] MEDS ORDERED: HYDROmorphone 0.5 MG/0.5 ML SYRINGE IVP PRN (14:12)
[2020-03-27] MEDS ORDERED: LACTATED RINGERS 1,000 ML IV SCH (14:15)
[2020-03-27] MEDS ORDERED: BUPIVACAIN-EPI 0.25%-1:200,000 30 ML VIAL SQ ONE ×3 (14:16→14:32)
[2020-03-27] MEDS ORDERED: LACTATED RINGERS 1,000 ML IV ONE (14:59)
--- NOTE | 2020-03-27 15:27 | P.OP ---
Date of Procedure: 03/27/20 Preoperative Diagnosis: Acute cholecystitis Postoperative Diagnosis: Acute cholecystitis Procedure(s) Performed: Laparoscopic cholecystectomy Anesthesia: AMINA Surgeon: Re Cesar Estimated Blood Loss (ml): 75 Pathology: other (Gallbladder) Condition: stable Disposition: PACU Indications for Procedure: The patient presented with a several-day history of abdominal pain. Ultrasound showed evidence of acute cholecystitis with gallbladder wall thickening and pericholecystic fluid Description of Procedure: The patient's taken the operative suite where she is prepped and draped in the usual sterile manner under general endotracheal anesthetic. An infraumbilical incision was made. The fascia was grasped and incised. The peritoneum was grasped and incised. A finger sweep was carried out. A balloon trocar is inserted and pneumoperitoneum was established with CO2 gas. There is noted to be a small area of pulsatile bleeding from the omentum. The area was identified and grasped with a grasper and cauterized. There was some persistent bleeding. Therefore the pneumoperitoneum was released. Retractors were placed at the umbilical trocar site and the omentum was brought up. It was suture ligated with 0 Vicryl. The omentum was placed back into the abdominal cavity. Pneumoperitoneum was established with CO2 gas. No further signs of bleeding were identified. The fundus of the gallbladder is grasped and retracted superiorly. Rubén's pouch is identified, its grasped and retracted laterally. The gallbladder wall was edematous. No evidence of gangrenous change. The cystic artery and cystic duct are dissected free of the node. They are triply clipped and cut. The gallbladder is then dissected free from the liver bed. Small bleeding points were controlled with electrocautery. The gallbladder is removed through the umbilical port site. The liver bed is reexamined. Small bleeding points are controlled with electrocautery. The omentum was reexamined and noted be hemostatic. Some old blood was irrigated and aspirated. The liver bed was reexamined. This this irrigant was suctioned out. The pneumoperitoneum was released. The trochars were removed. The fascia at the umbilicus was closed with 0 Vicryl. The skin incisions were closed with 4-0 Vicryl in a subcuticular manner. Steri-Strips and dressings were applied. She tolerated the procedure without difficulty and was taken to recovery room in satisfactory condition. According to or personnel, all counts were correct.
[2020-03-27 15:47] VITALS: RESP 16
[2020-03-27 16:19] VITALS: TEMP 97.5
[2020-03-27 17:02] VITALS: BP 103/58; PULSE 58
== END 2020-03-27 18:36 | disposition home or self-care (01) ==
LOC: EC 20:06 → 5NMEDONC 22:36 → UNDOADMOB 03-27
PROVIDERS: ADMIT Surgery; ATTEND Surgery
DX: K81.0 Acute cholecystitis (principal); K81.1 Chronic cholecystitis; Z03.818 Encounter for observation for suspected exposure to other biological agents ruled out; N92.0 Excessive and frequent menstruation with regular cycle; F90.9 Attention-deficit hyperactivity disorder, unspecified type; F41.9 Anxiety disorder, unspecified; F32.9 Major depressive disorder, single episode, unspecified; F17.210 Nicotine dependence, cigarettes, uncomplicated; Z79.899 Other long term (current) drug therapy; Z87.730 Personal history of (corrected) cleft lip and palate; Z98.51 Tubal ligation status
CPT/HCPCS: 47562; 96376; 96366; 96365; 96375; 99285; 36415; 88304; 80053 ×2; 83690; 85025 ×2; 81003; 81025; 87635; 76705; G0378 ×2; J2543; J2250; J2270 ×2; J2710; J2405; J0690; J2001; J3010; J1885; J1170 ×2; J1100; J0330; J2704

== ENCOUNTER 2020-09-30 15:19 | Emergency (ER) | payer OTHER ==
--- NOTE | 2020-09-30 15:47 | ED ---
Female Urogenital HPI - General Chief complaint: Urogenital Stated complaint: trouble urinating Time Seen by Provider: 09/30/20 15:31 Source: patient Mode of arrival: ambulatory Limitations: no limitations - History of Present Illness Initial comments: Patient is 30-year-old female presenting to the emergency department with chief complaint of unable to urinate. Patient states she has not been able to urinate today. Patient states 4 days ago she was diagnosed with a urinary tract infection and was started on Macrobid. Patient reports her UTI symptoms resolved, however today she has not been able to urinate. Patient states she's been otherwise drinking plenty of water. She does report urgency and the feeling of needing to urinate but is not able to. She states she has been sitting on a toilet for quite some time and nothing comes up. She is denying any vaginal discharge, bleeding or foul smell. She does report history of tubal ligation and uterine ablation so she has no concern for . No concern for STDs. Denies any night sweats or chills per does report suprapubic abdominal discomfort due to having a full bladder. She denies any nausea or vomiting. Denies diarrhea constipation. She denies any back pain, saddle anesthesia or bowel incontinence. Denies any trauma to her back. No numbness or tingling to the lower extremities. - Related Data Home Medications Medication Instructions Recorded Confirmed clonazePAM [KlonoPIN] 0.5 mg PO BID PRN 12/28/19 03/26/20 Escitalopram [Lexapro] 10 mg PO DAILY 03/26/20 03/26/20 buPROPion HCL [Wellbutrin SR] 150 mg PO QAM 03/26/20 03/26/20 Previous Rx's Medication Instructions Recorded traMADol HCL 1 - 2 mg PO Q4-6H PRN #20 tablet 03/27/20 Allergies Allergy/AdvReac Type Severity Reaction Status Date / Time No Known Allergies Allergy Verified 09/30/20 15:29 Review of Systems ROS Statement: Those systems with pertinent positive or pertinent negative responses have been documented in the HPI. ROS Other: All systems not noted in ROS Statement are negative. Past Medical History Past Medical History: No Reported History Additional Past Medical History / Comment(s): heavy periods History of Any Multi-Drug Resistant Organisms: None Reported Past Surgical History: Tubal Ligation, Uterine Ablation Additional Past Surgical History / Comment(s): cleft palate Past Anesthesia/Blood Transfusion Reactions: No Reported Reaction Past Psychological History: ADD/ADHD, Anxiety, Depression Smoking Status: Vaper Past Alcohol Use History: Occasional Past Drug Use History: Marijuana - Past Family History Mother Family Medical History: No Reported History General Exam Limitations: no limitations General appearance: alert, in no apparent distress Head exam: Present: atraumatic, normocephalic, normal inspection Eye exam: Present: normal appearance, PERRL, EOMI Pupils: Present: normal accommodation ENT exam: Present: normal exam, normal oropharynx, mucous membranes moist, TM's normal bilaterally, normal external ear exam Neck exam: Present: normal inspection, full ROM. Absent: tenderness Respiratory exam: Present: normal lung sounds bilaterally. Absent: respiratory distress, wheezes, rales Cardiovascular Exam: Present: regular rate, normal rhythm, normal heart sounds. Absent: bradycardia, tachycardia, irregular rhythm, systolic murmur, gallop GI/Abdominal exam: Present: soft, tenderness (Mild suprapubic tenderness). Absent: distended, guarding, rebound, rigid Extremities exam: Present: normal inspection, full ROM, normal capillary refill. Absent: tenderness, pedal edema, calf tenderness Back exam: Present: normal inspection, full ROM. Absent: tenderness, CVA tenderness (R), CVA tenderness (L), muscle spasm, paraspinal tenderness, vertebral tenderness Neurological exam: Present: alert, oriented X3, normal gait Psychiatric exam: Present: normal affect, normal mood Skin exam: Present: warm, dry, intact, normal color Course Vital Signs 09/30/20 09/30/20 15:26 17:17 Temperature 97.6 F 98.4 F Pulse Rate 76 71 Respiratory 20 18 Rate Blood Pressure 111/67 127/94 O2 Sat by Pulse 99 99 Oximetry Medical Decision Making - Medical Decision Making patient is a 30-year-old female presenting to the emergency department with a chief complaint of unable to urinate. A physical examination, patient has suprapubic tenderness which I believe is from a full bladder. Bladder scan revealed over 600 mL of urine. Full catheter was placed and posterior liter of urine was removed. Patient was given diallo catheter instructions and was advised to follow-up with a urologist. Patient does not appear to be taking any medications that would cause any acute urinary retention. She does not have any injury to the back or back pain that was suggested cauda equina. No other neurological symptoms. Patient states she will follow up with a urologist. Strict return parameters were thoroughly discussed the patient was understanding and agreeable. UA was unremarkable. Patient was offered pelvic examination, she declined. Case discussed with physician - Lab Data Lab Results 09/30/20 09/30/20 Range/Units 15:56 15:56 Urine Color Yellow Urine Appearance Cloudy H (Clear) Urine pH 7.0 (5.0-8.0) Ur Specific [place] 1.011 (1.001-1.035) Urine Protein Negative (Negative) Urine Glucose (UA) Negative (Negative) Urine Ketones Negative (Negative) Urine Blood Negative (Negative) Urine Nitrite Negative (Negative) Urine Bilirubin Negative (Negative) Urine Urobilinogen <2.0 (<2.0) mg/dL Ur Leukocyte Esterase Negative (Negative) Urine RBC 1 (0-5) /hpf Urine WBC 1 (0-5) /hpf Ur Squamous Epith Cells <1 (0-4) /hpf Amorphous Sediment Occasional H (None) /hpf Urine Bacteria Rare H (None) /hpf Urine Mucus Rare H (None) /hpf Urine HCG, Qual Not Detected (Not Detectd) Disposition Clinical Impression: Urinary retention Disposition: HOME SELF-CARE Condition: Stable Instructions (If sedation given, give patient instructions): Diallo Catheter Placement and Care (ED), Acute Urinary Retention in Women (ED) Additional Instructions: Follow-up with urologist. Return to emergency department if symptoms worsen. Is patient prescribed a controlled substance at d/c from ED?: No Referrals: Britta Arroyo III, MD [Primary Care Provider] - 1-2 days Malachi Turner MD [STAFF PHYSICIAN] - 1-2 days Time of Disposition: 17:08
[2020-09-30 16:37] LABS: Amorphous Sediment,Urine Occasional /hpf; Appearance,Urine Cloudy (Clear); Bacteria,Urine Rare /hpf; Bilirubin,Urine Negative (Negative); Blood,Urine Negative (Negative); Color,Urine Yellow; Glucose,Urine (UA) Negative (Negative); Ketones,Urine Negative (Negative); Leukocyte Esterase,Urine Negative (Negative); Mucus,Urine Rare /hpf; Nitrite,Urine Negative (Negative); Protein,Urine Negative (Negative); RBC,Urine 1 /hpf (0-5); Specific Gravity,Urine 1.011 (1.001-1.035); Squamous Epithelial Cell,Urine <1 /hpf (0-4); Urobilinogen,Urine <2.0 mg/dL (<2.0); WBC,Urine 1 /hpf (0-5)
[2020-09-30 17:18] VITALS: BP 127/94; PULSE 71; RESP 18; TEMP 98.4
== END 2020-09-30 17:32 | disposition home or self-care (01) ==
LOC: EC 15:19
DX: R33.9 Retention of urine, unspecified (principal); F41.9 Anxiety disorder, unspecified; F32.9 Major depressive disorder, single episode, unspecified; F90.9 Attention-deficit hyperactivity disorder, unspecified type; F17.290 Nicotine dependence, other tobacco product, uncomplicated; Z79.899 Other long term (current) drug therapy; Z98.51 Tubal ligation status
CPT/HCPCS: 51702; 81001; 81025; 99283

== ENCOUNTER 2020-10-01 15:22 | Emergency (ER) | payer OTHER ==
[2020-10-01 15:31] VITALS: RESP 16
[2020-10-01] MEDS ORDERED: SODIUM CHLORIDE 0.9% 500 ML 500 ML IV STA ×2 (15:37→17:48)
--- NOTE | 2020-10-01 15:41 | ED ---
Female Urogenital HPI - General Chief complaint: Urogenital Stated complaint: cath placement pain Time Seen by Provider: 10/01/20 15:33 Source: patient Mode of arrival: ambulatory Limitations: no limitations - History of Present Illness Initial comments: Patient is a 30-year-old female presenting to emergency Department with chief complaint of back pain. Patient states she was emergency department yesterday and received a Bolton catheter and discharged to follow-up with a urologist. Patient states this morning she has developed some dull achy pain and lower abdominal region without any radiation. No numbness or tingling. No saddle anesthesia. No bowel incontinence. No nausea or vomiting diarrhea. Denies taking medication to this symptom. States that she stopped taking Macrobid which she only had 2 days left of that. Patient states her foot catheter has otherwise been drinking well. She did notice a clot earlier today prior to emptying the bag. - Related Data Home Medications Medication Instructions Recorded Confirmed clonazePAM [KlonoPIN] 0.5 mg PO BID PRN 12/28/19 03/26/20 Escitalopram [Lexapro] 10 mg PO DAILY 03/26/20 03/26/20 buPROPion HCL [Wellbutrin SR] 150 mg PO QAM 03/26/20 03/26/20 Previous Rx's Medication Instructions Recorded traMADol HCL 1 - 2 mg PO Q4-6H PRN #20 tablet 03/27/20 Allergies Allergy/AdvReac Type Severity Reaction Status Date / Time No Known Allergies Allergy Verified 10/01/20 15:30 Review of Systems ROS Statement: Those systems with pertinent positive or pertinent negative responses have been documented in the HPI. ROS Other: All systems not noted in ROS Statement are negative. Past Medical History Past Medical History: No Reported History Additional Past Medical History / Comment(s): heavy periods, History of Any Multi-Drug Resistant Organisms: None Reported Past Surgical History: Tubal Ligation, Uterine Ablation Additional Past Surgical History / Comment(s): cleft palate, Past Anesthesia/Blood Transfusion Reactions: No Reported Reaction Past Psychological History: ADD/ADHD, Anxiety, Depression Smoking Status: Vaper Past Alcohol Use History: Occasional Past Drug Use History: Marijuana - Past Family History Mother Family Medical History: No Reported History General Exam Limitations: no limitations General appearance: alert, in no apparent distress Head exam: Present: atraumatic, normocephalic, normal inspection Eye exam: Present: normal appearance, PERRL, EOMI Pupils: Present: normal accommodation ENT exam: Present: normal exam, normal oropharynx, mucous membranes moist, TM's normal bilaterally, normal external ear exam Neck exam: Present: normal inspection, full ROM. Absent: tenderness Respiratory exam: Present: normal lung sounds bilaterally. Absent: respiratory distress, wheezes, rales Cardiovascular Exam: Present: regular rate, normal rhythm, normal heart sounds. Absent: bradycardia, tachycardia, irregular rhythm GI/Abdominal exam: Present: soft. Absent: distended, tenderness, guarding, rebound Extremities exam: Present: normal inspection, full ROM, normal capillary refill. Absent: tenderness, pedal edema, joint swelling, calf tenderness Back exam: Present: normal inspection, full ROM. Absent: tenderness, CVA tenderness (R), CVA tenderness (L) Neurological exam: Present: alert, oriented X3 Psychiatric exam: Present: normal affect, normal mood Skin exam: Present: warm, dry, intact, normal color Course Vital Signs 10/01/20 10/01/20 10/01/20 15:28 16:28 17:42 Temperature 98 F Pulse Rate 95 68 Respiratory 16 16 16 Rate Blood Pressure 114/85 97/68 O2 Sat by Pulse 98 98 Oximetry - Reevaluation(s) Reevaluation #1: 10/01/20 18:32 Medical record reviewed Medical Decision Making - Medical Decision Making 30-year-old female presenting to the emergency Department with chief complaint of back pain. Patient was seen yesterday for urinary retention. Catheter Bolton still in place. She is having nonreproducible back pain in the lumbosacral region. No radiculopathy type symptoms. No cauda equina. CT of abdomen and pelvis without contrast reveals suspected 3.2 cm right ovarian cyst. There is also a 0.3 cm nonobstructing renal stone. CBC CMP is unremarkable. UA reveals microscopic hematuria but no signs of urinary tract infection. Urine culture pending. Patient was given IV fluids and analgesia. Bolton catheter was removed. Patient was advised to return to emergency department if she is not able to void after 6 hours. She was also advised to follow-up with urologist. Return parameters were thoroughly discussed the patient was understanding and agreeable. also examined the patient and is in agreement with the treatment plan. - Lab Data Result diagrams: 10/01/20 15:51 10/01/20 15:51 Lab Results 10/01/20 10/01/20 10/01/20 Range/Units 15:51 15:51 15:51 WBC 7.7 (3.8-10.6) k/uL RBC 4.75 (3.80-5.40) m/uL Hgb 14.3 (11.4-16.0) gm/dL Hct 44.4 (34.0-46.0) % MCV 93.7 (80.0-100.0) fL MCH 30.1 (25.0-35.0) pg MCHC 32.1 (31.0-37.0) g/dL RDW 12.7 (11.5-15.5) % Plt Count 293 (150-450) k/uL Neutrophils % 71 % Lymphocytes % 19 % Monocytes % 6 % Eosinophils % 3 % Basophils % 1 % Neutrophils # 5.5 (1.3-7.7) k/uL Lymphocytes # 1.5 (1.0-4.8) k/uL Monocytes # 0.4 (0-1.0) k/uL Eosinophils # 0.2 (0-0.7) k/uL Basophils # 0.0 (0-0.2) k/uL Sodium (137-145) mmol/L Potassium (3.5-5.1) mmol/L Chloride (98-107) mmol/L Carbon Dioxide (22-30) mmol/L Anion Gap mmol/L BUN (7-17) mg/dL Creatinine (0.52-1.04) mg/dL Est GFR (CKD-EPI)AfAm (>60 ml/min/1.73 sqM) Est GFR (CKD-EPI)NonAf (>60 ml/min/1.73 sqM) Glucose (74-99) mg/dL Calcium (8.4-10.2) mg/dL Total Bilirubin (0.2-1.3) mg/dL AST (14-36) U/L ALT (4-34) U/L Alkaline Phosphatase (38-126) U/L Total Protein (6.3-8.2) g/dL Albumin (3.5-5.0) g/dL Urine Color Yellow Urine Appearance Cloudy H (Clear) Urine pH 6.0 (5.0-8.0) Ur Specific [place] 1.019 (1.001-1.035) Urine Protein 1+ H (Negative) Urine Glucose (UA) Negative (Negative) Urine Ketones Negative (Negative) Urine Blood Large H (Negative) Urine Nitrite Negative (Negative) Urine Bilirubin Negative (Negative) Urine Urobilinogen <2.0 (<2.0) mg/dL Ur Leukocyte Esterase Moderate H (Negative) Urine RBC >182 H (0-5) /hpf Urine WBC 7 H (0-5) /hpf Ur Squamous Epith Cells <1 (0-4) /hpf Urine Bacteria Rare H (None) /hpf Urine Mucus Few H (None) /hpf Urine HCG, Qual Not Detected (Not Detectd) 10/01/20 Range/Units 15:51 WBC (3.8-10.6) k/uL RBC (3.80-5.40) m/uL Hgb (11.4-16.0) gm/dL Hct (34.0-46.0) % MCV (80.0-100.0) fL MCH (25.0-35.0) pg MCHC (31.0-37.0) g/dL RDW (11.5-15.5) % Plt Count (150-450) k/uL Neutrophils % % Lymphocytes % % Monocytes % % Eosinophils % % Basophils % % Neutrophils # (1.3-7.7) k/uL Lymphocytes # (1.0-4.8) k/uL Monocytes # (0-1.0) k/uL Eosinophils # (0-0.7) k/uL Basophils # (0-0.2) k/uL Sodium 139 (137-145) mmol/L Potassium 3.9 (3.5-5.1) mmol/L Chloride 108 H (98-107) mmol/L Carbon Dioxide 26 (22-30) mmol/L Anion Gap 5 mmol/L BUN 12 (7-17) mg/dL Creatinine 0.60 (0.52-1.04) mg/dL Est GFR (CKD-EPI)AfAm >90 (>60 ml/min/1.73 sqM) Est GFR (CKD-EPI)NonAf >90 (>60 ml/min/1.73 sqM) Glucose 131 H (74-99) mg/dL Calcium 8.5 (8.4-10.2) mg/dL Total Bilirubin 0.4 (0.2-1.3) mg/dL AST 19 (14-36) U/L ALT 10 (4-34) U/L Alkaline Phosphatase 69 (38-126) U/L Total Protein 6.9 (6.3-8.2) g/dL Albumin 3.8 (3.5-5.0) g/dL Urine Color Urine Appearance (Clear) Urine pH (5.0-8.0) Ur Specific [place] (1.001-1.035) Urine Protein (Negative) Urine Glucose (UA) (Negative) Urine Ketones (Negative) Urine Blood (Negative) Urine Nitrite (Negative) Urine Bilirubin (Negative) Urine Urobilinogen (<2.0) mg/dL Ur Leukocyte Esterase (Negative) Urine RBC (0-5) /hpf Urine WBC (0-5) /hpf Ur Squamous Epith Cells (0-4) /hpf Urine Bacteria (None) /hpf Urine Mucus (None) /hpf Urine HCG, Qual (Not Detectd) Disposition Clinical Impression: Urinary catheter insertion/adjustment/removal, Back pain, Hematuria Disposition: HOME SELF-CARE Condition: Stable Instructions (If sedation given, give patient instructions): Low Back Strain (ED) Additional Instructions: Return to emergency department if she not able to urinate in 6 hours. Follow-up with urologist. Is patient prescribed a controlled substance at d/c from ED?: No Referrals: Britta Arroyo III, MD [Primary Care Provider] - 1-2 days Time of Disposition: 17:50
[2020-10-01 16:00] LABS: Basophils % (A) 1 %; Eosinophils # (A) 0.2 k/uL (0-0.7); Eosinophils % (A) 3 %; HCT 44.4 % (34.0-46.0); HGB 14.3 gm/dL (11.4-16.0); Lymphocytes # (A) 1.5 k/uL (1.0-4.8); Lymphocytes % (A) 19 %; MCH 30.1 pg (25.0-35.0); MCHC 32.1 g/dL (31.0-37.0); MCV 93.7 fL (80.0-100.0); Mean Platelet Volume 6.3; Monocytes # (A) 0.4 k/uL (0-1.0); Monocytes % (A) 6 %; Neutrophils # (A) 5.5 k/uL (1.3-7.7); Neutrophils % (A) 71 %; Platelet Count 293 k/uL (150-450); RBC 4.75 m/uL (3.80-5.40); RDW 12.7 % (11.5-15.5); WBC 7.7 k/uL (3.8-10.6)
[2020-10-01] MEDS ORDERED: MORPHINE SULFATE 4 MG/ML SYRINGE IVP STA (16:00)
[2020-10-01 16:06] LABS: Appearance,Urine Cloudy (Clear); Bacteria,Urine Rare /hpf; Bilirubin,Urine Negative (Negative); Blood,Urine Large (Negative); Color,Urine Yellow; Glucose,Urine (UA) Negative (Negative); Ketones,Urine Negative (Negative); Leukocyte Esterase,Urine Moderate (Negative); Mucus,Urine Few /hpf; Nitrite,Urine Negative (Negative); Protein,Urine 1+ (Negative); RBC,Urine >182 /hpf (0-5); Specific Gravity,Urine 1.019 (1.001-1.035); Squamous Epithelial Cell,Urine <1 /hpf (0-4); Urobilinogen,Urine <2.0 mg/dL (<2.0); WBC,Urine 7 /hpf (0-5)
[2020-10-01 16:10] LABS: ALT 10 U/L (4-34); AST 19 U/L (14-36); African American GFR (CKD) >90 (>60 ml/min/1.73 sqM); Albumin 3.8 g/dL (3.5-5.0); Alkaline Phosphatase 69 U/L (38-126); Anion Gap 5 mmol/L; Blood Urea Nitrogen 12 mg/dL (7-17); Calcium 8.5 mg/dL (8.4-10.2); Carbon Dioxide 26 mmol/L (22-30); Chloride 108 mmol/L (98-107); Glucose 131 mg/dL (74-99); Non-African American GFR(CKD) >90 (>60 ml/min/1.73 sqM); Potassium 3.9 mmol/L (3.5-5.1); Sodium 139 mmol/L (137-145); Total Bilirubin 0.4 mg/dL (0.2-1.3); Total Protein 6.9 g/dL (6.3-8.2)
--- NOTE | 2020-10-01 17:22 | CT ---
EXAMINATION TYPE: CT abdomen pelvis wo con DATE OF EXAM: 10/01/2020 COMPARISON: None INDICATION: back pain, urinary retention DLP: 529.1 mGycm, Automated exposure control for dose reduction was used. CONTRAST: 0 mL of Isovue 300. Study performed without Oral Contrast TECHNIQUE: Axial images were obtained from above the diaphragm to the pubic rami in the axial plane a t 5 mm thick sections. Reconstructed images are reviewed on the computer in the coronal plane. FINDINGS: Limited CT sections are obtained the lung bases. The lung bases are clear. CT ABDOMEN: Liver: Normal Spleen: Normal Pancreas: Normal Adrenal glands: The adrenal glands are normal. Gallbladder: ] Absent Kidneys: No masses are evident. No hydronephrosis is present. No cysts are present. There is a 0.3 cm calcification in the posterior mid right renal collecting system. Aorta: Normal Inferior vena cava: Normal. CT PELVIS: Loops of bowel within the abdomen and pelvis are normal. Study is limited with oral contrast. Appendix: Normal as visualized Urinary bladder: Decompressed with a Bolton catheter. Genitourinary structures: There appears to be a large cystlike structure in the posterior pelvis may be a posterior right ovarian cyst measuring 3.2 cm. Uterus appears unremarkable. Left adnexal region is unremarkable. Osseous structures: No suspicious lytic or sclerotic lesions. IMPRESSIONS: 1. Suspected 3.2 cm right ovarian cyst. This could be further evaluated in the posterior pelvis with pelvic ultrasound. 2. Nonobstructing 0.3 cm right renal calcification
[2020-10-01 19:26] VITALS: BP 98/65; PULSE 71; TEMP 98.8
== END 2020-10-01 19:25 | disposition home or self-care (01) ==
LOC: EC 15:22
DX: M54.5 Low back pain (principal); R31.9 Hematuria, unspecified; R10.30 Lower abdominal pain, unspecified; F17.290 Nicotine dependence, other tobacco product, uncomplicated; F41.9 Anxiety disorder, unspecified; F32.9 Major depressive disorder, single episode, unspecified; F90.9 Attention-deficit hyperactivity disorder, unspecified type; Z79.899 Other long term (current) drug therapy; Z98.51 Tubal ligation status
CPT/HCPCS: 36415; 80053; 85025; 81001; 81025; 87086; 74176; 99284; 96374; 96361 ×2; J2270

== ENCOUNTER 2020-10-02 01:21 | Emergency (ER) | payer OTHER ==
[2020-10-02 01:26] VITALS: BP 110/68; PULSE 89; RESP 17; TEMP 97.9
--- NOTE | 2020-10-02 01:35 | ED ---
General Adult HPI - General Chief complaint: Urogenital Stated complaint: recheck from prev visit Time Seen by Provider: 10/02/20 01:34 EDT Source: patient Mode of arrival: ambulatory Limitations: no limitations - History of Present Illness Initial comments: 30-year-old female patient presents to the emergency department today for evaluation of urinary retention. Patient was recent and treated for urinary tract infection, presented to the emergency department 2 days ago due to being unable to urinate. They did repeat her urinalysis at that time and inserted a Diallo catheter and had about a liter of urine output. She was discharged home with a catheter in place. Earlier today she presented to the emergency department due to increased back pain. At that time she did undergo extensive evaluation including laboratory testing and CT of the abdomen and pelvis. Did reveal a 3 cm ovarian cyst but no other abnormalities. At the patient's request the Diallo catheter was discontinued. Patient states that she has not been able to urinate for the last 6 hours. States she does feel the urge to urinate but she is unable to go. She denies any fever or chills. Denies any history of urologic conditions or concerns. Denies nausea or vomiting. Denies flank pain. Patient denies any recent rash, cough, shortness of breath, chest pain, abdominal pain, diarrhea, constipation, back pain, numbness, tingling, dizziness, weakness, headache, visual changes, or any other complaints. - Related Data Home Medications Medication Instructions Recorded Confirmed clonazePAM [KlonoPIN] 0.5 mg PO BID PRN 12/28/19 03/26/20 Escitalopram [Lexapro] 10 mg PO DAILY 03/26/20 03/26/20 buPROPion HCL [Wellbutrin SR] 150 mg PO QAM 03/26/20 03/26/20 Previous Rx's Medication Instructions Recorded traMADol HCL 1 - 2 mg PO Q4-6H PRN #20 tablet 03/27/20 Allergies Allergy/AdvReac Type Severity Reaction Status Date / Time No Known Allergies Allergy Verified 10/02/20 01:26 EDT Review of Systems ROS Statement: Those systems with pertinent positive or pertinent negative responses have been documented in the HPI. ROS Other: All systems not noted in ROS Statement are negative. Past Medical History Past Medical History: No Reported History Additional Past Medical History / Comment(s): heavy periods, History of Any Multi-Drug Resistant Organisms: None Reported Past Surgical History: Tubal Ligation, Uterine Ablation Additional Past Surgical History / Comment(s): cleft palate, Past Anesthesia/Blood Transfusion Reactions: No Reported Reaction Past Psychological History: ADD/ADHD, Anxiety, Depression Smoking Status: Vaper Past Alcohol Use History: Occasional Past Drug Use History: Marijuana - Past Family History Mother Family Medical History: No Reported History General Exam Limitations: no limitations General appearance: alert, in no apparent distress, other (This is a well- developed, well-nourished adult female patient in no acute distress. Vital signs upon presentation are temperature 97.9F, pulse 89, respirations 17, blood pressure 110/68, pulse ox 100% on room air.) Respiratory exam: Present: normal lung sounds bilaterally. Absent: respiratory distress, wheezes, rales, rhonchi, stridor Cardiovascular Exam: Present: regular rate, normal rhythm, normal heart sounds. Absent: systolic murmur, diastolic murmur, rubs, gallop, clicks GI/Abdominal exam: Present: soft, tenderness (Suprapubic), normal bowel sounds. Absent: distended, guarding, rebound, rigid Back exam: Present: normal inspection. Absent: CVA tenderness (R), CVA tenderness (L) Neurological exam: Present: alert, oriented X3, CN II-XII intact Psychiatric exam: Present: normal affect, normal mood Skin exam: Present: warm, dry, intact, normal color. Absent: rash Course Vital Signs 10/02/20 01:24 EDT Temperature 97.9 F Pulse Rate 89 Respiratory 17 Rate Blood Pressure 110/68 O2 Sat by Pulse 100 Oximetry Medical Decision Making - Medical Decision Making 30-year-old female patient presented to the emergency department today for evaluation of urinary retention. Patient recently was treated for UTI, subsequently developed urinary retention, had diallo catheter inserted and then removed. She has not urinated for the last six hours. Labs, CT abdomen and pelvis, and urinalysis were performed earlier today. Urinalysis showed red blood cells. Other imaging was unremarkable other than 3cm ovarian cyst. Patient did have a small amount of urine output here. Post void residual was over 380ml. Diallo catheter was reinserted. To be discharged with this in place instructed to follow-up with urologist for further evaluation. Return parameters discussed in detail. She verbalizes understanding and agrees with this plan. Disposition Clinical Impression: Urinary retention, UTI (urinary tract infection) Disposition: HOME SELF-CARE Condition: Good Instructions (If sedation given, give patient instructions): Urinary Tract Infection in Women (ED), Diallo Catheter Placement and Care (ED) Additional Instructions: Follow up with urologist for further evaluation as soon as possible. Return to the emergency department for any new, worsening, or concerning symptoms. Is patient prescribed a controlled substance at d/c from ED?: No Referrals: Britta Arroyo III, MD [Primary Care Provider] - 1-2 days Malachi Turner MD [STAFF PHYSICIAN] - 1-2 days
== END 2020-10-02 01:56 | disposition home or self-care (01) ==
LOC: EC 01:21
DX: N39.0 Urinary tract infection, site not specified (principal); R33.9 Retention of urine, unspecified; N83.209 Unspecified ovarian cyst, unspecified side; F41.9 Anxiety disorder, unspecified; F32.9 Major depressive disorder, single episode, unspecified; F90.9 Attention-deficit hyperactivity disorder, unspecified type; F17.290 Nicotine dependence, other tobacco product, uncomplicated; Z79.899 Other long term (current) drug therapy; Z98.51 Tubal ligation status
CPT/HCPCS: 51702; 99283

== ENCOUNTER 2020-10-02 16:30 | Inpatient (IN) | payer BC, OTHER ==
--- NOTE | 2020-10-02 16:41 | ED ---
Female Urogenital HPI - General Chief complaint: Urogenital Stated complaint: low back pain Time Seen by Provider: 10/02/20 16:39 Source: patient Mode of arrival: ambulatory Limitations: no limitations - History of Present Illness Initial comments: Patient is a 30-year-old female presenting to the emergency department with a chief complaint of back pain. Patient reports she developed urinary retention 2 days ago for no particular reason. Patient states she was in emergency department and was given a Bolton catheter. Patient reports after discharge, she developed some low back pain and return to emergency department. Our workup initiated showed no significant laboratory changes. She states that a CT performed showed only an ovarian cyst but no on the findings. Patient states the Bolton was then removed and she was advised to return if she was not able to urinate in 6 hours. Patient states that she return yesterday and had another Bolton inserted. Patient states she had to follow-up with the urologist because they're not open over the weekend. Patient reports now she continues to have back pain, except this time the pain seems to be radiating along the anterior aspect of the left lower extremity. Denies any saddle anesthesia, bowel incontinence. She denies nausea vomiting diarrhea. Denies any abdominal pain or chest pain or shortness of breath. Denies any fevers, night sweats or chills. States the Bolton catheter has otherwise been draining well. She denies any extremity paresthesias or weakness. Denies trauma to her back. - Related Data Home Medications Medication Instructions Recorded Confirmed clonazePAM [KlonoPIN] 0.5 mg PO BID PRN 12/28/19 03/26/20 Escitalopram [Lexapro] 10 mg PO DAILY 03/26/20 03/26/20 buPROPion HCL [Wellbutrin SR] 150 mg PO QAM 03/26/20 03/26/20 Previous Rx's Medication Instructions Recorded traMADol HCL 1 - 2 mg PO Q4-6H PRN #20 tablet 03/27/20 Allergies Allergy/AdvReac Type Severity Reaction Status Date / Time No Known Allergies Allergy Verified 10/02/20 16:36 Review of Systems ROS Statement: Those systems with pertinent positive or pertinent negative responses have been documented in the HPI. ROS Other: All systems not noted in ROS Statement are negative. Past Medical History Past Medical History: No Reported History Additional Past Medical History / Comment(s): heavy periods, History of Any Multi-Drug Resistant Organisms: None Reported Past Surgical History: Tubal Ligation, Uterine Ablation Additional Past Surgical History / Comment(s): cleft palate, Past Anesthesia/Blood Transfusion Reactions: No Reported Reaction Past Psychological History: ADD/ADHD, Anxiety, Depression Smoking Status: Vaper Past Alcohol Use History: Occasional Past Drug Use History: Marijuana - Past Family History Mother Family Medical History: No Reported History General Exam Limitations: no limitations General appearance: alert, in no apparent distress Head exam: Present: atraumatic, normocephalic, normal inspection Eye exam: Present: normal appearance, PERRL, EOMI Pupils: Present: normal accommodation ENT exam: Present: normal exam, normal oropharynx, mucous membranes moist Neck exam: Present: normal inspection, full ROM. Absent: tenderness Respiratory exam: Present: normal lung sounds bilaterally. Absent: respiratory distress, wheezes, rales Cardiovascular Exam: Present: regular rate, normal rhythm, normal heart sounds. Absent: bradycardia, tachycardia GI/Abdominal exam: Present: soft, tenderness (Very mild left inguinal tenderness. This appears to be an inguinal lymph node.). Absent: distended, guarding, rebound Rectal exam: Present: normal inspection, normal rectal tone. Absent: decreased rectal tone, heme (-) stool, heme (+) stool External exam: Present: normal external exam (Bolton catheter in place). Absent: erythema, swelling, lesions, lacerations, ecchymosis Speculum exam: Absent: normal speculum exam, erythema, vaginal discharge, cervical discharge, vaginal bleeding, foreign body By manual exam: Present: normal by manual exam. Absent: cervical motion tenderness Extremities exam: Present: normal inspection, full ROM, normal capillary refill. Absent: tenderness Back exam: Present: normal inspection, full ROM. Absent: tenderness, CVA tenderness (R), CVA tenderness (L) Neurological exam: Present: alert, oriented X3, CN II-XII intact, normal gait Psychiatric exam: Present: normal affect, normal mood Skin exam: Present: warm, dry, intact, normal color Course Vital Signs 10/02/20 16:31 Temperature 98.4 F Pulse Rate 92 Respiratory 18 Rate Blood Pressure 136/76 O2 Sat by Pulse 98 Oximetry - Reevaluation(s) Reevaluation #1: 10/02/20 18:47 Medical record review Medical Decision Making - Medical Decision Making 30-year-old male presenting to the emergency department with chief complaint of back pain. This is the fourth time the patient has been seen in the past 3 days. She continues to have urinary retention but now she has developed back pain. For this visit, the patient has developed some radiation of the back pain to the anterior thigh. No numbness or tingling. Physical examination reveals no significant reproducible back pain. Pelvic examination is unremarkable. No signs of urethral obstruction. Bolton catheter in place. Rectal examination yields normal tone. UA reveals hematuria although I suspect this is due to the Bolton catheter. No signs of urinary tract infection. Most recent urine culture was negative. CT performed yesterday shows no significant findings that would indicate any urinary retention. Her symptoms are controlled well with morphine. Patient will be admitted for further medical management. I discussed the case with Admitting is Dr Yasmani Bates on consult - Lab Data Result diagrams: 10/02/20 17:11 10/02/20 17:11 Lab Results 10/02/20 10/02/20 10/02/20 Range/Units 17:03 17:11 17:11 WBC 5.8 (3.8-10.6) k/uL RBC 4.67 (3.80-5.40) m/uL Hgb 14.0 (11.4-16.0) gm/dL Hct 43.5 (34.0-46.0) % MCV 93.1 (80.0-100.0) fL MCH 29.9 (25.0-35.0) pg MCHC 32.1 (31.0-37.0) g/dL RDW 12.4 (11.5-15.5) % Plt Count 273 (150-450) k/uL Neutrophils % 72 % Lymphocytes % 18 % Monocytes % 6 % Eosinophils % 2 % Basophils % 1 % Neutrophils # 4.2 (1.3-7.7) k/uL Lymphocytes # 1.1 (1.0-4.8) k/uL Monocytes # 0.3 (0-1.0) k/uL Eosinophils # 0.1 (0-0.7) k/uL Basophils # 0.0 (0-0.2) k/uL Sodium 138 (137-145) mmol/L Potassium 4.0 (3.5-5.1) mmol/L Chloride 104 (98-107) mmol/L Carbon Dioxide 29 (22-30) mmol/L Anion Gap 5 mmol/L BUN 10 (7-17) mg/dL Creatinine 0.68 (0.52-1.04) mg/dL Est GFR (CKD-EPI)AfAm >90 (>60 ml/min/1.73 sqM) Est GFR (CKD-EPI)NonAf >90 (>60 ml/min/1.73 sqM) Glucose 128 H (74-99) mg/dL Calcium 8.8 (8.4-10.2) mg/dL Total Bilirubin 0.4 (0.2-1.3) mg/dL AST 24 (14-36) U/L ALT 18 (4-34) U/L Alkaline Phosphatase 76 (38-126) U/L Total Protein 7.0 (6.3-8.2) g/dL Albumin 3.9 (3.5-5.0) g/dL Urine Color Yellow Urine Appearance Clear (Clear) Urine pH 6.5 (5.0-8.0) Ur Specific [place] 1.018 (1.001-1.035) Urine Protein Negative (Negative) Urine Glucose (UA) Negative (Negative) Urine Ketones Negative (Negative) Urine Blood Large H (Negative) Urine Nitrite Negative (Negative) Urine Bilirubin Negative (Negative) Urine Urobilinogen 3.0 (<2.0) mg/dL Ur Leukocyte Esterase Large H (Negative) Urine RBC >182 H (0-5) /hpf Urine WBC 16 H (0-5) /hpf Ur Squamous Epith Cells 1 (0-4) /hpf Amorphous Sediment Rare H (None) /hpf Urine Bacteria Rare H (None) /hpf Urine Mucus Rare H (None) /hpf Disposition Clinical Impression: Hematuria, Back pain, Urinary retention Disposition: ADMITTED IP TO THIS HOSP Condition: Stable Additional Instructions: Admitted Is patient prescribed a controlled substance at d/c from ED?: No Referrals: Britta Arroyo III, MD [Primary Care Provider] - 1-2 days Time of Disposition: 18:51
[2020-10-02] MEDS ORDERED: MORPHINE SULFATE 4 MG/ML SYRINGE IVP STA (17:03)
[2020-10-02] MEDS ORDERED: SODIUM CHLORIDE 0.9% 1,000 ML IV STA (17:03)
[2020-10-02 17:19] LABS: Basophils % (A) 1 %; Eosinophils # (A) 0.1 k/uL (0-0.7); Eosinophils % (A) 2 %; HCT 43.5 % (34.0-46.0); Lymphocytes # (A) 1.1 k/uL (1.0-4.8); Lymphocytes % (A) 18 %; MCH 29.9 pg (25.0-35.0); MCHC 32.1 g/dL (31.0-37.0); MCV 93.1 fL (80.0-100.0); Mean Platelet Volume 6.4; Monocytes # (A) 0.3 k/uL (0-1.0); Monocytes % (A) 6 %; Neutrophils # (A) 4.2 k/uL (1.3-7.7); Neutrophils % (A) 72 %; Platelet Count 273 k/uL (150-450); RBC 4.67 m/uL (3.80-5.40); RDW 12.4 % (11.5-15.5); WBC 5.8 k/uL (3.8-10.6)
[2020-10-02 17:23] LABS: Amorphous Sediment,Urine Rare /hpf; Appearance,Urine Clear (Clear); Bacteria,Urine Rare /hpf; Bilirubin,Urine Negative (Negative); Blood,Urine Large (Negative); Color,Urine Yellow; Glucose,Urine (UA) Negative (Negative); Ketones,Urine Negative (Negative); Leukocyte Esterase,Urine Large (Negative); Mucus,Urine Rare /hpf; Nitrite,Urine Negative (Negative); PH, Urine 6.5 (5.0-8.0); Protein,Urine Negative (Negative); RBC,Urine >182 /hpf (0-5); Specific Gravity,Urine 1.018 (1.001-1.035); Squamous Epithelial Cell,Urine 1 /hpf (0-4); WBC,Urine 16 /hpf (0-5)
[2020-10-02 17:28] LABS: ALT 18 U/L (4-34); AST 24 U/L (14-36); African American GFR (CKD) >90 (>60 ml/min/1.73 sqM); Albumin 3.9 g/dL (3.5-5.0); Alkaline Phosphatase 76 U/L (38-126); Anion Gap 5 mmol/L; Blood Urea Nitrogen 10 mg/dL (7-17); Calcium 8.8 mg/dL (8.4-10.2); Carbon Dioxide 29 mmol/L (22-30); Chloride 104 mmol/L (98-107); Glucose 128 mg/dL (74-99); Non-African American GFR(CKD) >90 (>60 ml/min/1.73 sqM); Sodium 138 mmol/L (137-145); Total Bilirubin 0.4 mg/dL (0.2-1.3)
[2020-10-02] MEDS ORDERED: IBUPROFEN 400 MG TAB PO PRN (18:44)
[2020-10-02] MEDS ORDERED: NALOXONE 0.4 MG/ML 1 ML VIAL IV PRN (18:44)
[2020-10-02] MEDS ORDERED: ACETAMINOPHEN TAB 325 MG TAB PO PRN (18:44)
[2020-10-02] MEDS ORDERED: LORazepam 2 MG/ML INJ IV PRN (18:44)
[2020-10-02] MEDS ORDERED: ONDANSETRON 4 MG/2 ML VIAL IVP PRN (18:44)
[2020-10-02] MEDS ORDERED: HYDROmorphone 0.5 MG/0.5 ML SYRINGE IVP PRN (18:44)
[2020-10-02] MEDS ORDERED: HYDROmorphone 1 MG/ML 1 ML SYRINGE IVP PRN (18:44)
[2020-10-02] MEDS: SODIUM CHLORIDE 0.9% 1,000 ML IV SCH (19:39)
[2020-10-02] MEDS: MORPHINE SULFATE 4 MG/ML SYRINGE IV PRN (21:05)
[2020-10-03] MEDS: MORPHINE SULFATE 4 MG/ML SYRINGE IV PRN ×4 (03:06→17:24)
[2020-10-03] MEDS: SODIUM CHLORIDE 0.9% 1,000 ML IV SCH ×2 (06:40→20:20)
[2020-10-03] MEDS: NICOTINE 14MG/24HR PATCH TRANSDERM SCH (09:13)
[2020-10-03] MEDS: buPROPion SR 150 MG TABLET.ER PO SCH (09:13)
[2020-10-03] MEDS ORDERED: WATER FOR INJECTION, STERILE 10 ML IV ONE (09:22)
--- NOTE | 2020-10-03 11:17 | MR ---
EXAMINATION TYPE: MR lumbar spine wo con DATE OF EXAM: 10/03/2020 COMPARISON: CT 2 days ago. HISTORY: Urinary retention, back pain TECHNIQUE: Multiplanar, multisequence imaging of the lumbar spine is performed without IV contrast. FINDINGS: Slight scoliotic curvature positioning remains present. Sagittal images of the lumbar spine show vertebral body heights and alignment to appear satisfactory. The intervertebral discs demonstra te normal heights and hydration. The conus medullaris is normal in position and signal ending mid L1 level. The bone marrow signal intensity is within normal limits. Axial images show no focal disc herniation at any lumbar level. There is no spinal canal stenosis, n eural foraminal narrowing, or evidence of nerve root compromise. Mild facet arthropathy lower lumbar levels. IMPRESSION: Mild degenerative changes lower lumbar spine. No significant findings seen to patient's s ymptoms of urinary retention.
--- NOTE | 2020-10-03 13:11 | P.CNOR ---
History of Present Illness - [facility] Consult date: 10/03/20 Requesting physician: Jose Luis Perry Consult reason: low back pain, other (Urinary retention) History of present illness: Patient is a pleasant 30-year-old female who is seen and examined at bedside for for which regards to lumbar spine over the past several days patient expe riencing urinary retention. This is her fourth presentation to the emergency department. She presented the first time on 09/30/2020. She currently has a Bolton catheter intact. She denies any recent injuries. During one of her presentation to the emergency department a Bolton catheter was placed. She was discharged home. She followed up for a subsequent visit with her Bolton catheter removed at that time. Following that discharge she was unable to urinate 6 hours later. She presented back to the emergency department for evaluation. Bolton catheter has been reinserted. Patient states she does have sensation and feels like she needs to urinate but is unable to do so. She denies any saddle anesthesia. She has regular bowel movements. She has not had a bowel movement recently she states she has not been eating much food. Initially she was not experiencing any other symptoms except difficulty with urination. Yesterday she started to experience some low back pain. She admits to some left-sided abdominal pain but is not experiencing any distention. Her abdomen is soft. Patient's family states she was experiencing some numbness and tingling in the lower extremity yesterday but the patient states multiple times during physical examination and discussion she is not currently experiencing any lower extremity weakness or radiculopathy bilaterally. She states she has some low back pain that radiates across the low back around the lumbosacral junction. CT data and pelvis taken on 10/01/2020. She scheduled for a lumbar MRI today. Patient was not found to have a urinary tract infection on urinalysis. Past Medical History Past Medical History: No Reported History Additional Past Medical History / Comment(s): heavy periods, History of Any Multi-Drug Resistant Organisms: None Reported Past Surgical History: Cholecystectomy, Tubal Ligation, Uterine Ablation Additional Past Surgical History / Comment(s): cleft palate, Past Anesthesia/Blood Transfusion Reactions: No Reported Reaction Past Psychological History: ADD/ADHD, Anxiety, Depression Smoking Status: Vaper Past Alcohol Use History: Occasional Additional Past Alcohol Use History / Comment(s): pt states she quit smoking cigarettes and now only vapes daily Past Drug Use History: Marijuana - Past Family History Mother Family Medical History: No Reported History Medications and Allergies Home Medications Medication Instructions Recorded Confirmed Type Escitalopram [Lexapro] 15 mg PO DAILY 03/26/20 10/02/20 History ARIPiprazole [Abilify] 5 mg PO DAILY 10/02/20 10/02/20 History Allergies Allergy/AdvReac Type Severity Reaction Status Date / Time No Known Allergies Allergy Verified 10/02/20 19:48 Physical Examination Physical exam: Patient is awake, alert, and oriented 3 Vital signs stable Good chest excursion with deep inspiration and expiration Abdomen soft nontender; no abdominal distention Examination of thoracic and lumbar spine reveals skin is intact with no abrasions, lacerations, or bruises; no erythema, purulence or signs of infection Mild pain with palpation at the lumbosacral junction Dorsiflexion, plantarflexion, and extensor hallucis longus positive sustained bilaterally Lower extremity strength 5/5 bilaterally Patellar reflex 2+ bilaterally and Achilles reflexes 0+ bilaterally No lower extremity hyperreflexia bilaterally Straight leg test negative bilateral lower extremities Negative Lasegue's test bilaterally Patient is able to move legs independently and change positions in bed independently without difficulty No signs or symptoms of DVT; no calf pain No pain with internal and external rotation of the hips bilaterally Neurovascularly intact Bolton catheter intact Results Pertinent studies: MRI of the lumbar spine taken on 10/03/2020: No evidence of spinal canal stenosis, neural foraminal narrowing, or nerve root compromise; mild facet arthropathy lower lumbar spine; no significant herniated nucleus pulposus; no significant findings seen to correlate with the patient's symptoms of urinary retention CT of the abdomen and pelvis taken on 10/01/2020: Overall alignment of the thoracolumbar spine is adequately maintained; intravertebral disc spacing is well-maintained; no obvious stenosis on CT imaging; suspected 3.2 cm right ovarian cyst; Nonobstructing 0.3 cm right renal calcification - Labs Labs: Abnormal Lab Results - Last 24 Hours (Table) 10/02/20 10/02/20 Range/Units 17:03 17:11 Glucose 128 H (74-99) mg/dL Urine Blood Large H (Negative) Ur Leukocyte Esterase Large H (Negative) Urine RBC >182 H (0-5) /hpf Urine WBC 16 H (0-5) /hpf Amorphous Sediment Rare H (None) /hpf Urine Bacteria Rare H (None) /hpf Urine Mucus Rare H (None) /hpf H & H 10/02/20 Range/Units 17:11 Hgb 14.0 (11.4-16.0) gm/dL Hct 43.5 (34.0-46.0) % Result Diagrams: 10/02/20 17:11 10/02/20 17:11 Assessment and Plan Assessment: Assessment: Urinary retention with multiple presentations to the emergency department for urinary retention Low back pain Lower lumbar facet arthropathy Suspected 3.2 cm right ovarian cyst (1) Low back pain Current Visit: Yes Status: Acute Code(s): M54.5 - LOW BACK PAIN SNOMED Code(s): 726271315 (2) Bolton catheter in place Current Visit: Yes Status: Acute Code(s): Z97.8 - PRESENCE OF OTHER SPE CIFIED DEVICES SNOMED Code(s): 502219485 (3) Urinary retention Current Visit: Yes Status: Acute Code(s): R33.9 - RETENTION OF URINE, UNSPECIFIED SNOMED Code(s): 383564123 (4) Lumbar facet arthropathy Current Visit: Yes Status: Acute Code(s): M47.816 - SPONDYLOSIS W/O MYELOPATHY OR RADICULOPATHY, LUMBAR REGION SNOMED Code(s): 921931329 Plan: Plan: 1. Patient has been discussed in detail with Dr. Perez Valera CT imaging has been reviewed by him and myself. Patient continues to experience urinary retention over the past 3 days of unknown cause. She only more recently began to experience some low back pain. CT of the abdomen and pelvis performed without significant findings. She has a Bolton catheter currently in place. This Bolton was previously placed and then discontinued but the patient was unable to void was reinserted. At this time, given her urinary retention along with new onset low back pain, an MRI of the lumbar spine has been urgently ordered. Patient denies any recent injuries. She does have active full range of motion bilateral lower extremities with 5/5 strength bilaterally. She denies any lower extremity weakness in the bilateral lower extremities. She denies any saddle anesthesia. She does admit she was able to sense urination when she needed to go but was unable to urinate. Prior to the finalized dictation of this note the lumbar MRI has been performed and interpreted. This MRI has been reviewed by myself and Dr. Perez Valera. MRI imaging does not show any evidence of spinal canal stenosis, neural foraminal narrowing, or nerve root compromise. There are no significant herniated nucleus pulposus. MRI images show any significant findings to correlate with the patient's symptoms of urinary retention. We do not feel her symptoms are stemming specifically from her lumbar spine. We are not currently planning for any further imaging or testing in regards to the patient's lumbar spine. At that time, patient could benefit from consultation with urology. At this time, patient is clear for discharge from orthopedic spin e standpoint. Patient may follow-up in the outpatient setting on an as-needed basis.. 2. Patient will continue to be seen and examined by other medical providers including medicine 3. Consultation has been placed with urology Time with Patient: Greater than 30 (Including obtaining history, physical examination, reviewing of imaging, and dictation.)
--- NOTE | 2020-10-03 15:57 | P.CNNES ---
History of Present Illness Consult date: 10/03/20 Requesting physician: Roxanne Lockhart Reason for Consult: urinary retention with lower back pain History of Present Illness: This is a 30-year-old right-handed woman with history of cleft lip and palate, heavy mensese and anemia s/p ablation of utereus (12/2019) that presented to the emergency department on 10/02/2020 for lower back pain as well as urinary retention. Patient stated that about 1 week ago exactly she had urinary tract infection so she was on antibiotic and was supposed to be on it for 7 days but she only took it for 4-5 days because she felt there is improvement in her symptoms. But this past Saturday she felt like she was having urinary retention and she was not urinating. She spoke with her physician via telemedicine and was told that comes to the ED. She has been in the emergency department numerous times starting from 09/30/2020 for urinary retention. She said that the she was retaining a lot of the urine. Initially the she had the Bolton catheter in but she said that she could not do that because she has 3 jobs so as a result they took it out and the was told that if the she continues to retain to come back to the emergency department. She was also told to follow-up with a urologist regarding this. she came multiple times because of urinary retention. And then on that 10/01/2020 she had noticed that she is having the lower back pain and it's the across her lower back initially without radiation but now she feels like it's slightly radiating down her posterior thigh area bilaterally. She denies any sensation loss with this. She denies any focal weakness. She said that back pain is a dull constant but currently because of the pain medication 7 out of 10. Denies any recent trauma to the back. Patient denies any saddle anesthesia. She denies any new neck pain. Denies any weakness upper extremities appeared any difficulty getting her words out. Any visual disturbance. She did state that that she has a family history of brain aneurysm. She said that she she had some workup at [facility] in which she had a lumbar puncture. But she didn't have any vessel imaging regarding the brain aneurysm. She does have some headache and the frontal area. It's a dull ache and she stated it's mild. Denies any photophobia, phonophobia, any nausea or vomiting. She was a result of the normal , normal gestation and no complications at. As she had 2 kids and to inform had cleft lip and palate. The first one there is no complication but besides a cleft lip and palate and that according to her the patient is a healthy. Her last child that she had M at term the an but she had IUD when she was . Patient 5 days after and was told be cause of an enterovirus. Her last was 8 years ago. MRI of the lumbar spine on 10/03/2020 was reported as mild degenerative change of the lower lumbar spine. No significant findings seen to the patient symptoms of urinary retention. Her urinalysis on 10/02/2020 shows the urine. Clear, urine blood was large, urine nitrite was negative, urine leukocyte esterase was large, urine white bl ood cell is 16. Suggestive of urinary tract infection. Orthopedic evaluate the patient today and they didn't feel the patient urinary symptoms are from [place] region. And they recommended a urology consultation. Review of Systems Review of system: The 12 point system was reviewed and apparent positive and negative per HPI. Past Medical History Past Medical History: No Reported History Additional Past Medical History / Comment(s): heavy periods, History of Any Multi-Drug Resistant Organisms: None Reported Past Surgical History: Cholecystectomy, Tubal Ligation, Uterine Ablation Additional Past Surgical History / Comment(s): cleft palate, Past Anesthesia/Blood Transfusion Reactions: No Reported Reaction Past Psychological History: ADD/ADHD, Anxiety, Depression Smoking Status: Vaper Past Alcohol Use History: Occasional Additional Past Alcohol Use History / Comment(s): pt states she quit smoking cigarettes and now only vapes daily Past Drug Use History: Marijuana - Past Family History Mother Family Medical History: No Reported History Medications and Allergies Home Medications Medication Instructions Recorded Confirmed Type Escitalopram [Lexapro] 15 mg PO DAILY 03/26/20 10/02/20 History ARIPiprazole [Abilify] 5 mg PO DAILY 10/02/20 10/02/20 History Allergies Allergy/AdvReac Type Severity Reaction Status Date / Time No Known Allergies Allergy Verified 10/02/20 19:48 Physical Examination - Vital Signs Vital Signs: Vital Signs Temp Pulse Pulse Resp BP BP Pulse Ox 10/03/20 13:05 97.9 F 73 14 95/58 96 10/03/20 08:40 98.3 F 77 16 101/69 98 10/03/20 03:00 97.5 F L 64 16 107/62 100 10/02/20 20:39 97.6 F 66 18 103/70 99 10/02/20 19:42 98.4 F 87 16 125/64 97 10/02/20 16:31 98.4 F 92 18 136/76 98 Intake and Output 10/02/20 10/03/20 10/03/20 22:59 06:59 14:59 Output Total 1100 600 Balance -1100 -600 Output: Urine 1100 600 Other: Voiding Method Indwelling Catheter Indwelling Catheter Indwelling Catheter Weight 77.5 kg GENERAL: The patient is lying in bed and is not in acute distress. CHEST: The heart rate is regular rate rhythm. No murmurs to auscultation. LUNG: Clear to auscultation bilaterally no wheezing noted throughout. Not labored breathing. ABDOMEN/GI: Bowel sounds present in all 4 quadrants. No tenderness to palpation throughout. NEUROLOGICAL: Higher mental function: The patient is awake, alert, oriented to self, place and time. Patient is following commands. No aphasia and no neglect. Cranial nerves: The pupils are round, equal and reactive to light and accommodation. Visual schroeder are full to confrontation throughout. Extraocular movement is intact no nystagmus is noted. Facial sensation is normal to touch throughout. The facial strength is normal throughout. Hearing is normal bilaterally to hand rub. Tongue is midline and moved [id number] without any difficulty. No dysarthria is noted. Shoulder shrug is normal bilaterally. Motor: The strength is 5 over 5 throughout. Normal tone and bulk. Cerebellum: Normal finger to nose heel to chin bilaterally. Sensation: Sensation is normal to touch throughout. Reflexes (right/left): 2+ throughout except patellar 3+ bilaterally. Plantars are downgoing bilaterally. Results - Laboratory Findings CBC and BMP: 10/02/20 17:11 10/02/20 17:11 Abnormal Lab Findings: Abnormal Labs 10/02/20 10/02/20 17:03 17:11 Glucose 128 H Urine Blood Large H Ur Leukocyte Esterase Large H Urine RBC >182 H Urine WBC 16 H Amorphous Sediment Rare H Urine Bacteria Rare H Urine Mucus Rare H Assessment and Plan Assessment: Lower back pain likely due to urinary retention Family history of brain aneurysm Urinary retention History of cleft lip and palate Plan: Regarding her headache I ordered CT of the head. Regarding her family history of brain aneurysm I ordered MRA of the head. Regarding her lower back pain likely from the urinary retention and there is no further workup regarding that. Urology is consulted and appreciated the recommendation. Thank You for the consultation. Stevie Latif M.D. Neuro-hospitalist Time with Patient: Greater than 30
[2020-10-03] MEDS ORDERED: MAGNESIUM HYDROXIDE 2,400 MG/10 ML CUP PO PRN (16:09)
--- NOTE | 2020-10-03 16:55 | CT ---
EXAMINATION TYPE: CT brain wo con DATE OF EXAM: 10/03/2020 HISTORY: Headaches, family history of aneurysm. CT DLP: 1069.2 mGycm. Automated Exposure Control for Dose Reduction was Utilized. TECHNIQUE: CT scan of the head is performed without contrast. COMPARISON: CT brain 04/06/2019. CTA had 04/13/2019. FINDINGS: There is no acute intracranial hemorrhage, midline shift, or mass effect identified. Brain parenchyma appears normal. The ventricles, sulci, and cisterns are normal in size and configuration. No extra-a xial fluid collection. Bones and extracranial soft tissues are intact. The globes are grossly symmetric. Mastoid air cells a re clear. There is severe paranasal sinus disease, with marked mucosal thickening of the maxillary si nuses, occlusion of the bilateral ostiomeatal complexes, mucosal thickening of the ethmoid air cells, occlusion of the bilateral frontoethmoidal recesses, mucosal thickening of the sphenoid sinuses bila terally, and occlusion of the bilateral sphenoid ostia. IMPRESSION: 1. No acute intracranial hemorrhage, midline shift, or mass effect. 2. Marked paranasal sinus disease with mucosal thickening of the maxillary sinuses, ethmoid air cells , and sphenoid sinuses. There is occlusion of the bilateral ostiomeatal complexes, frontoethmoidal re cesses, and sphenoid ostia.
--- NOTE | 2020-10-03 17:13 | P.HPIM ---
History of Present Illness H&P Date: 10/03/20 Chief Complaint: Acute urinary retention Ms. Shirley is a 30-year-old female with the past medical history of ADHD, anxiety with depression, cleft palate coming in with a chief complaint of acute urinary retention. Patient has been in and out of the ER for the past couple of days for urinary retention. She states that this is the fourth time that she has come back with the same complaint. Couple of days back she came in and they put her on a Bolton's catheter and sent her home but she came back. So the patient had a CAT scan of the abdomen and pelvis on 10/01 showing nonobstructing 0.3 right renal calculi and a suspected 3.2 cm right ovarian cyst. So the patient was advised to follow up with urologist but as we're not open over the weekend, patient came back to the ER. Patient also complained of low back pain in between her buttock areas which is new. Patient states that the pain as 6 out of 10, nonradiating. Patient denies having any loss of her bowel movements. She has a Bolton's catheter in place. She denies having any hematuria or dysuria. She states that she has discomfort because of the Bolton's catheter. She denies having any fevers, night sweats or chills. Patient denies having any tingling or numbness in her extremities. Patient denies having any recent fall or trauma to her back. Patient denies having any suprapubic pain. Patient denies having any vaginal discharge. She denies having any abdominal pain. No nausea, vomiting or diarrhea or constipation. Patient also complains of headaches mostly in the frontal area, dull in nature. Patient denies having any photophobia or phonophobia. She has history of cleft palate. Patient denies having any chest pain or palpitations. No cough or difficulty in breathing. No neck stiffness. No weakness of her extremities. No gait instability. She denies having any visual changes or speech abnormalities. Review of Systems REVIEW OF SYSTEMS: PSYCH: Anxiety with depression NEURO:No c/o weakness of the extremties, No facial droop, No speech abnorma lities. VASCULAR: no edema HEMATOLOGIC: No history of easy bleeding and bruising . No recent infections . RESPIRATORY: No cough, No SOB, No chest discomfort. IMMUNE: No infections INTEGUMENT: no rashes OPHTHALMOLOGIC: No blurry vision and no eye discharge : As per HPI [employer]: No bleeding PV CARDIAC: No chest pain , shortness of breath , paroxysmal nocturnal dyspnea MUSCULOSKELETAL : No Aches or pains in the joints or muscles. GI: No abdominal pain, Nausea or vomiting. No constipation or diarrhea. Past Medical History Past Medical History: No Reported History Additional Past Medical History / Comment(s): heavy periods, History of Any Multi-Drug Resistant Organisms: None Reported Past Surgical History: Cholecystectomy, Tubal Ligation, Uterine Ablation Additional Past Surgical History / Comment(s): cleft palate, Past Anesthesia/Blood Transfusion Reactions: No Reported Reaction Past Psychological History: ADD/ADHD, Anxiety, Depression Smoking Status: Vaper Past Alcohol Use History: Occasional Additional Past Alcohol Use History / Comment(s): pt states she quit smoking cigarettes and now only vapes daily Past Drug Use History: Marijuana - Past Family History Mother Family Medical History: No Reported History Medications and Allergies Home Medications Medication Instructions Recorded Confirmed Type Escitalopram [Lexapro] 15 mg PO DAILY 03/26/20 10/02/20 History ARIPiprazole [Abilify] 5 mg PO DAILY 10/02/20 10/02/20 History Allergies Allergy/AdvReac Type Severity Reaction Status Date / Time No Known Allergies Allergy Verified 10/02/20 19:48 Physical Exam Vitals: Vital Signs Temp Pulse Pulse Resp BP BP Pulse Ox 10/03/20 08:40 98.3 F 77 16 101/69 98 10/03/20 03:00 97.5 F L 64 16 107/62 100 10/02/20 20:39 97.6 F 66 18 103/70 99 10/02/20 19:42 98.4 F 87 16 125/64 97 10/02/20 16:31 98.4 F 92 18 136/76 98 Intake and Output 10/02/20 10/03/20 10/03/20 22:59 06:59 14:59 Output Total 1100 600 Balance -1100 -600 Output: Urine 1100 600 Other: Voiding Method Indwelling Catheter Indwelling Catheter Indwelling Catheter Weight 77.5 kg PHYSICAL EXAM GEN. APPEARANCE: alert, in no apparent distress HEAD EXAM: atraumatic, normocephalic, normal inspection EYE EXAM: normal appearance, PERRL, EOMI. no pallor. No icterus. No conjunctival injection. No perirectal swelling. No nystagmus. ENT EXAM: normal exam, mucous membranes moist NECK EXAM: No thyromegaly. No JVD. RESPIRATORY EXAM: Bilateral breath sounds are positive. No wheezing or crackles. CARDIOVASCULAR EXAM: regular rate, normal rhythm, normal heart sounds. No additional sound GI/ABDOMINAL EXAM: soft, normal bowel sounds. Nontender. Nondistended. No guarding or rigidity. Rectal tone is normal. Patient has a Bolton's catheter in place. EXTREMITIES EXAM: No pedal edema. No calf tenderness. No joint swelling. BACK EXAM: Mild tenderness in the L5-S1 area. No CVA tenderness. NEUROLOGICAL EXAM: alert, oriented X3, CN II-XII intact, motor sensory deficit, strength is 5 out of 5 in all 4 extremities. Normal tone and bulk. Normal reflexes. PSYCHIATRIC EXAM: normal affect, normal mood SKIN EXAM: no rash Results CBC & Chem 7: 10/02/20 17:11 10/02/20 17:11 Labs: Abnormal Lab Results - Last 24 Hours (Table) 10/02/20 10/02/20 Range/Units 17:03 17:11 Glucose 128 H (74-99) mg/dL Urine Blood Large H (Negative) Ur Leukocyte Esterase Large H (Negative) Urine RBC >182 H (0-5) /hpf Urine WBC 16 H (0-5) /hpf Amorphous Sediment Rare H (None) /hpf Urine Bacteria Rare H (None) /hpf Urine Mucus Rare H (None) /hpf Thrombosis Risk Factor Assmnt - Choose All That Apply Any of the Below Risk Factors Present?: Yes Each Factor Represents 1 point: Obesity (BMI >25) Other Risk Factors: No Thrombosis Risk Factor Assessment Total Risk Factor Score: 1 Thrombosis Risk Factor Assessment Level: Low Risk Assessment and Plan Assessment: ASSESSMENT Acute urinary retention Urinary tract infection Acute mild low back pain History of cleft lip and cleft palate Anxiety with depression PLAN: Patient has acute urinary retention ongoing for the past 3-4 days. Urine analysis is positive for large blood, large leukocyte esterase with 16 WBCs. Will get urine cultures and empirically started on ceftriaxone. Patient also had an MRI of the lumbar spine showing mild degenerative changes in the lower lumbar spine. There is no spinal canal stenosis, neural foraminal narrowing or evidence of nerve root compression. We will have neurology and urology consults. Explain in detail that treatment plan to the patient at bedside today. Further recommendations depending on the progress of the patient.
[2020-10-03] MEDS: TAMSULOSIN 0.4 MG CAP.ER.24H PO SCH (17:26)
--- NOTE | 2020-10-03 17:29 | MR ---
EXAMINATION TYPE: MR angio head wo con DATE OF EXAM: 10/03/2020 COMPARISON: CT brain 10/03/2020, [facility] [place] [facility] angiogram 04/13/2019 HISTORY: Headaches, family hx aneurysm TECHNIQUE: Time of flight images focusing on the [place] were performed without contrast. Th ree-dimensional reconstructions performed on an alternate workstation. FINDINGS: Infundibulum noted inferior margin of the internal carotid artery on the right and the left . Anterior posterior circulation are intact. There is no evident aneurysm, dissection, or embolus. IMPRESSION: Normal [facility] [place] MRA
[2020-10-03] MEDS: traMADol 50 MG TAB PO PRN (20:17)
--- NOTE | 2020-10-03 20:35 | P.GSCN ---
History of Present Illness Consult date: 10/03/20 Reason for Consult: Urinary retention History of present illness: The patient is a 33-year-old female who was admitted yesterday late in the [facility] due to severe low back pain and urinary retention. She says that her problem began on 09/21 or 09/22 when she developed dysuria and urinary frequency. She was diagnosed with a urinary tract infection on 09/23 and was started on Macrobid. She says that the frequency and dysuria resolved and she stopped the Macrobid on 09/29. She denied any pain the following day but noted that she had not voided at all throughout the day. She says she normally voids every 2-3 hours during the day and once at night. She came to the emergency room on the afternoon of 09/30 and a Bolton catheter was inserted and drained 600 cc. The patient was discharged with the catheter in place but apparently dev eloped severe pain secondary to the catheter so she returned to the emergency room and the catheter was removed on 10/[address] of the abdomen and pelvis was normal. She returned to the emergency room late in the evening as she was unable to void and apparently a catheter was reinserted but unfortunately the emergency room records do not describe placing a catheter or how much drained. Later in the day the patient said she developed severe low back pain which was worse when she would sit forward. She denied any paresthesias in the legs or perineum. She returned to the emergency room and an MR of the lumbosacral spine was obtained but showed no abnormality to explain the urinary retention. She was evaluated by who felt that there was no evidence of acute spinal disorder. She was then had a neurological evaluation by who also was unable to find any acute focal deficits. The patient's father has a history of a cerebral aneurysm and because of this a CT of the brain and MRA of the head was obtained today but neither showed any abnormality that would explain the urinary retention. The patient has no previous history of urinary retention. As previously noted she usually voids every 2-3 hours during the day and once at night. She says she normally has a bowel movement every day but has not had a bowel movement since her urinary retention began on 09/30. She has some vague lower abdominal and left lower quadrant pain but says that this is not unusual. Review of Systems - Constitutional Denies chills, Denies fever - Gastrointestinal Reports as per HPI, Reports constipation - Genitourinary Genitourinary: Denies abnormal vaginal bleeding, Denies genital sores Past Medical History Past Medical History: No Reported History Additional Past Medical History / Comment(s): heavy periods, History of Any Multi-Drug Resistant Organisms: None Reported Past Surgical History: Cholecystectomy, Tubal Ligation, Uterine Ablation Additional Past Surgical History / Comment(s): cleft palate, C sections Past Anesthesia/Blood Transfusion Reactions: No Reported Reaction Past Psychological History: ADD/ADHD, Anxiety, Depression Smoking Status: Vaper Past Alcohol Use History: Occasional Additional Past Alcohol Use History / Comment(s): pt states she quit smoking cigarettes and now only vapes daily Past Drug Use History: Marijuana - Past Family History Mother Family Medical History: No Reported History Medications and Allergies Home Medications Medication Instructions Recorded Confirmed Type Escitalopram [Lexapro] 15 mg PO DAILY 03/26/20 10/02/20 History ARIPiprazole [Abilify] 5 mg PO DAILY 10/02/20 10/02/20 History Allergies Allergy/AdvReac Type Severity Reaction Status Date / Time No Known Allergies Allergy Verified 10/02/20 19:48 Surgical - Exam Vital Signs Temp Pulse Resp BP Pulse Ox 98.4 F 92 18 136/76 98 10/02/20 16:31 10/02/20 16:31 10/02/20 16:31 10/02/20 16:31 10/02/20 16:31 - General well developed, well nourished, no distress - ENT no hearing loss - Respiratory normal respiratory effort - Abdomen Abdomen: soft, non tender, no organomegaly, no masses Hernia: none - Genitourinary normal external genitalia - Neurologic other (Normal sensation to light touch in perineal and perianal region) - Psychiatric speech is normal, memory intact Results - Labs 10/02/20 17:11 10/02/20 17:11 Microbiology - Last 24 Hours (Table) 10/03/20 14:00 Urine Culture - Preliminary Urine,Catheterized Assessment and Plan (1) Urinary retention Narrative/Plan: The cause of the patient's urinary retention is not clear. Urinary retention related to a urinary tract infection due to severe dysuria is possible but the patient's dysuria actually resolved prior to her retention. Constipation can contribute to urinary retention but the patient said that her bowel movements had been normal prior to her urinary retention and that she feels that her lack of bowel movements is because she has not been eating as much over the last several days. She has not been on any new medications. The patient does not appear to have any identifiable underlying neurologic abnormality and so her urinary retention appears to be idiopathic. The patient will be started on tamsulosin 0.4 mg tonight and her catheter will be removed in the morning. If she remains unable to void then she will be instructed in self catheterization. Current Visit: Yes Status: Acute Code(s): R33.9 - RETENTION OF URINE, UNSPECIFIED SNOMED Code(s): 674302902
[2020-10-04] MEDS: traMADol 50 MG TAB PO PRN ×3 (04:13→16:36)
[2020-10-04 07:40] LABS: Basophils % (A) 0 %; Eosinophils # (A) 0.1 k/uL (0-0.7); Eosinophils % (A) 2 %; HCT 41.5 % (34.0-46.0); Lymphocytes % (A) 22 %; MCH 29.8 pg (25.0-35.0); MCHC 31.2 g/dL (31.0-37.0); MCV 95.3 fL (80.0-100.0); Mean Platelet Volume 6.5; Monocytes # (A) 0.4 k/uL (0-1.0); Monocytes % (A) 9 %; Neutrophils # (A) 2.9 k/uL (1.3-7.7); Neutrophils % (A) 65 %; Platelet Count 248 k/uL (150-450); RBC 4.36 m/uL (3.80-5.40); RDW 13.3 % (11.5-15.5); WBC 4.4 k/uL (3.8-10.6)
[2020-10-04 07:48] LABS: African American GFR (CKD) >90 (>60 ml/min/1.73 sqM); Anion Gap 5 mmol/L; Blood Urea Nitrogen 8 mg/dL (7-17); Calcium 8.6 mg/dL (8.4-10.2); Carbon Dioxide 30 mmol/L (22-30); Chloride 104 mmol/L (98-107); Glucose 92 mg/dL (74-99); Non-African American GFR(CKD) >90 (>60 ml/min/1.73 sqM); Potassium 4.2 mmol/L (3.5-5.1); Sodium 139 mmol/L (137-145)
[2020-10-04] MEDS: NICOTINE 14MG/24HR PATCH TRANSDERM SCH (09:07)
[2020-10-04] MEDS: TAMSULOSIN 0.4 MG CAP.ER.24H PO SCH (09:07)
[2020-10-04] MEDS: buPROPion SR 150 MG TABLET.ER PO SCH (09:07)
[2020-10-04 15:23] LABS: Appearance,Urine Clear (Clear); Bilirubin,Urine Negative (Negative); Blood,Urine Negative (Negative); Color,Urine Light Yellow; Glucose,Urine (UA) Negative (Negative); Ketones,Urine Negative (Negative); Leukocyte Esterase,Urine Negative (Negative); Nitrite,Urine Negative (Negative); Protein,Urine Negative (Negative); Specific Gravity,Urine 1.007 (1.001-1.035); Urobilinogen,Urine <2.0 mg/dL (<2.0)
[2020-10-04] MEDS: SODIUM CHLORIDE 0.9% 1,000 ML IV SCH (16:37)
--- NOTE | 2020-10-04 17:24 | P.OBCN ---
History of Present Illness Consult date: 10/04/20 Reason for consult: ovarian cyst, other (Urinary retention and incidental ovarian cyst) Chief complaint: Urinary retention History of present illness: Please see dictated admission history and physical and multiple consultation notes on this patient's history. In brief summary this is a pleasant 30-year-old 2 para 2 female who is admitted several days ago with recurrent urinary retention. Patient is in the process of being evaluated for this by urology and neurology. I was consulted to see this patient because it was noted incidentally on CAT scan done on October 01 that she had a 3.2 cm right ovarian cyst. Patient is an established patient of Dr. Kebede. Patient had a endometrial ablation done on December 29 of this year. Patient states that she's had no bleeding since. Patient is admitted for complaints of pelvic pain secondary to urinary retention. Review of Systems Genitourinary: Reports as per HPI Menstruation: Reports amenorrhea (Secondary to ablation) Past Medical History Past Medical History: No Reported History Additional Past Medical History / Comment(s): heavy periods, History of Any Multi-Drug Resistant Organisms: None Reported Past Surgical History: Cholecystectomy, Tubal Ligation, Uterine Ablation Additional Past Surgical History / Comment(s): cleft palate, Past Anesthesia/Blood Transfusion Reactions: No Reported Reaction Past Psychological History: ADD/ADHD, Anxiety, Depression Smoking Status: Vaper Past Alcohol Use History: Occasional Additional Past Alcohol Use History / Comment(s): pt states she quit smoking cigarettes and now only vapes daily Past Drug Use History: Marijuana - Past Family History Mother Family Medical History: No Reported History Medications and Allergies Home Medications Medication Instructions Recorded Confirmed Type Escitalopram [Lexapro] 15 mg PO DAILY 03/26/20 10/02/20 History ARIPiprazole [Abilify] 5 mg PO DAILY 10/02/20 10/02/20 History Allergies Allergy/AdvReac Type Severity Reaction Status Date / Time No Known Allergies Allergy Verified 10/02/20 19:48 Exam Vital Signs Temp Pulse Resp BP BP Pulse Ox 10/04/20 12:15 97.0 F L 60 14 103/60 99 10/04/20 08:15 97.1 F L 52 L 16 100/65 99 10/03/20 23:00 98.6 F 80 16 98/60 98 10/03/20 19:35 98.1 F 98 16 107/63 98 Intake and Output 11/03/20 11/03/20 11/03/20 06:59 14:59 22:59 Intake Total 1350 Output Total 1600 600 Balance -250 -600 Intake: Intake, IV Titration 1000 Amount Sodium Chloride 0.9% 1, 1000 000 ml @ 75 mls/hr IV . [id number] [facility] Rx#:[id number] Oral 350 Output: Urine 1600 600 Other: Voiding Method Indwelling Catheter Toilet # Voids 1 Results CAT scan done on October 01 shows a 3.2 centimeter right ovarian cyst. Result Diagrams: 10/04/20 06:54 10/04/20 06:54 Microbiology - Last 24 Hours (Table) 10/03/20 14:00 Urine Culture - Preliminary Urine,Catheterized Assessment and Plan Assessment: This is a pleasant 30-year-old 2 para 2 female who is admitted for evaluation and treatment of pelvic pain secondary to acute urinary retention. The process of evaluation patient has had a CAT scan that shows a 3.2 cm right ovarian cyst. Given the patient's age this most likely is physiologic in nature, consistent with ovulation. I explained this in detail to the patient and I have recommended a precautionary follow-up with Dr. Kebede who will most likely get an ultrasound in 6 weeks to show resolution. There really is no gy necologic reason that this cyst or on endometrial ablation would cause urinary retention. Thank you very much for this consultation. (1) Urinary retention Current Visit: Yes Status: Acute Code(s): R33.9 - RETENTION OF URINE, UNSPECIFIED SNOMED Code(s): 176405219 (2) Simple physiological cyst of ovary Current Visit: Yes Status: Acute Code(s): N83.299 - OTHER OVARIAN CYST, UNSPECIFIED SIDE SNOMED Code(s): 67138511
--- NOTE | 2020-10-04 17:54 | P.PN ---
Subjective Progress Note Date: 10/04/20 Patient was seen at bedside and the she denies of any neurological deficits. Denies of any headache or neck pain. Today the patient the Bolton was taken out and the she is able to urinate on her own multiple times but then that she was retaining so the Bolton was placed back in. CT of the head was reported as no acute intracranial hemorrhage, midline shift or mass effect. Marked paranasal sinus disease with mucosal thickening of the maxillary sinuses, ethmoid that air cells and that's renal sinuses. There is occlusion of the bilateral ostial and meatal complexes, frontal ethmoidal recesses and that's sphenoidal ostia. MRA of the head was done because of a family history of brain aneurysm and it was reported as normal [place]. There is no evident aneurysm, dissection or embolism. Objective - Vital Signs Vital signs: Vital Signs Temp 98.0 F 10/04/20 16:42 Pulse 75 10/04/20 16:42 Resp 14 10/04/20 16:42 BP 111/73 10/04/20 16:42 Pulse Ox 98 10/04/20 16:42 Intake & Output 10/03/20 10/04/20 10/04/20 18:59 06:59 18:59 Intake Total 1550 Output Total 1100 1600 1200 Balance -1100 -50 -1200 Intake: Intake, IV Titration 1000 Amount Sodium Chloride 0.9% 1, 1000 000 ml @ 75 mls/hr IV . [id number] [facility] Rx#:[id number] Oral 550 Output: Urine 1100 1600 1200 Other: Voiding Method Indwelling Catheter Indwelling Catheter Toilet # Voids 2 1 - Exam GENERAL: The patient is lying in bed and is not in acute distress. CHEST: The heart rate is regular rate rhythm. No murmurs to auscultation. LUNG: Clear to auscultation bilaterally no wheezing noted throughout. Not labored breathing. INTEGUMENTARY: Patient has a scar tissue on the left from history of cleft lip/palate. NEUROLOGICAL: Higher mental function: The patient is awake, alert, oriented to self, place and time. Patient is following commands. No aphasia and no neglect. Cranial nerves: The pupils are round, equal and reactive to light and accommodation. Visual schroeder are full to confrontation throughout. Extraocular movement is intact no nystagmus is noted. Facial sensation is normal to touch throughout. The facial strength is normal throughout. Hearing is normal bilaterally to hand rub. Tongue is midline and moved [id number] without any difficulty. No dysarthria is noted. Shoulder shrug is normal bilaterally. Motor: The strength is 5 over 5 throughout. Normal tone and bulk. Cerebellum: Normal finger to nose heel to chin bilaterally. Sensation: Sensation is normal to touch throughout. Reflexes (right/left): 2+ throughout except patellar 3+ bilaterally. Plantars are downgoing bilaterally. - Labs CBC & Chem 7: 10/04/20 06:54 10/04/20 06:54 Labs: Microbiology - Last 24 Hours (Table) 10/03/20 14:00 Urine Culture - Final Urine,Catheterized Assessment and Plan Assessment: Lower back pain likely due to urinary retention Family history of brain aneurysm Acute Urinary retention History of cleft lip and palate Plan: * Regarding CT of the head that there is no acute intracranial ischemia, hemorrhage or any mass effect. Marked paranasal sinus disease with mucosal thickening of the maxillary sinuses, ethmoid that air cells and that's renal sinuses. There is occlusion of the bilateral ostial and meatal complexes, frontal ethmoidal recesses and that's sphenoidal ostia. * Consider seeing a ENT as an outpatient regarding sinus finding on the CT of the head * MRA of the head the did not show any aneurysms * Regarding her lower back pain likely from the urinary retention and there is no further workup regarding that. Urology is on board. No further neurological work-up is needed. Will sign off. Please reconsult neurology team if needed. Stevie Latif M.D. Neuro-hospitalist Time with Patient: Less than 30
[2020-10-04] MEDS: DOCUSATE 100 MG CAP PO SCH (20:45)
[2020-10-04] MEDS ORDERED: SENNOSIDES 8.6 MG TAB PO PRN (21:00)
--- NOTE | 2020-10-04 23:23 | P.PN ---
Subjective Ms. Shirley is a 30-year-old female with the past medical history of ADHD, anxiety with depression, cleft palate coming in with a chief complaint of acute urinary retention. Patient has been in and out of the ER for the past couple of days for urinary retention. She states that this is the fourth time that she has come back with the same complaint. Couple of days back she came in and they put her on a Bolton's catheter and sent her home but she came back. So the patient had a CAT scan of the abdomen and pelvis on 10/01 showing nonobstructing 0.3 right renal calculi and a suspected 3.2 cm right ovarian cyst. So the patient was advised to follow up with urologist but as we're not open over the weekend, patient came back to the ER. Patient also complained of low back pain in between her buttock areas which is new. Patient states that the pain as 6 out of 10, nonradiating. Patient denies having any loss of her bowel movements. She has a Bolton's catheter in place. She denies having any hematuria or dysuria. She states that she has discomfort because of the Bolton's catheter. She denies having any fevers, night sweats or chills. Patient denies having any tingling or numbness in her extremities. Patient denies having any recent fall or trauma to her back. Patient denies having any suprapubic pain. Patient denies having any vaginal discharge. She denies having any abdominal pain. No nausea, vomiting or diarrhea or constipation. Patient also complains of headaches mostly in the frontal area, dull in nature. Patient denies having any photophobia or phonophobia. She has history of cleft palate. Patient denies having any chest pain or palpitations. No cough or difficulty in breathing. No neck stiffness. No weakness of her extremities. No gait instability. She denies having any visual changes or speech ab normalities. 10/04/2020 This is a pleasant 30 years old female who presents with low back pain secondary to urinary retention, patient has been evaluated by urologist, recommended Bolton catheter but later and recommended to be removed and patient was able to be today, because of the urinary retention is not clear, could be due to constipation, patient is still complaining from constipation and stated that milk of magnesia is not helping her so she was started on Colace and senna as needed. UTI as a cause of urinary retention is BY NORMAL SECOND SAMPLE OF HIS UA, also she has normal pro-calcitonin. Urine culture is negative and ceftriaxone was stopped She has right ovarian cyst, AUTO APPRENTICE MECHANIC team were consulted and most likely patient has physiologic cyst given her age and the recommended outpatient follow-up for resolution Objective - Vital Signs Vital signs: Vital Signs Temp 98.0 F 10/04/20 16:42 Pulse 75 10/04/20 16:42 Resp 14 10/04/20 16:42 BP 111/73 10/04/20 16:42 Pulse Ox 98 10/04/20 16:42 Intake & Output 10/03/20 10/04/20 10/04/20 18:59 06:59 18:59 Intake Total 1550 Output Total 1100 1600 2400 Balance -1100 -50 -2400 Intake: Intake, IV Titration 1000 Amount Sodium Chloride 0.9% 1, 1000 000 ml @ 75 mls/hr IV . [id number] [facility] Rx#:[id number] Oral 550 Output: Urine 1100 1600 1800 Uretheral (Bolton) 600 Post Void Residual 600 Other: Voiding Method Indwelling Catheter Indwelling Catheter Toilet # Voids 2 1 - Exam GENERAL: The patient is alert and oriented x3, not in any acute distress. Well developed, well nourished. HEENT: Pupils are round and equally reacting to light. EOMI. No scleral icterus. No conjunctival pallor. Normocephalic, atraumatic. No pharyngeal erythema. No thyromegaly. CARDIOVASCULAR: S1 and S2 present. No murmurs, rubs, or gallops. PULMONARY: Chest is clear to auscultation, no wheezing or crackles. ABDOMEN: Soft, nontender, nondistended, normoactive bowel sounds. No palpable organomegaly. MUSCULOSKELETAL: No joint swelling or deformity. EXTREMITIES: No cyanosis, clubbing, or pedal edema. NEUROLOGICAL: Gross neurological examination did not reveal any focal deficits. SKIN: No rashes. no petechiae. - Labs CBC & Chem 7: 10/04/20 06:54 10/04/20 06:54 Labs: Microbiology - Last 24 Hours (Table) 10/03/20 14:00 Urine Culture - Final Urine,Catheterized Assessment and Plan Assessment: Acute urinary retention, mostly due to constipation Acute mild low back pain secondary to above 0.3 right kidney stone 3.2 right ovarian cyst, most likely physiological History of cleft lip and cleft palate Anxiety with depression, not an active issue Plan: This is a pleasant 30 years old female who presents with urinary retention. UTI has been ruled out and ceftriaxone can be stopped. Urinary retention is resolving, most likely is due to constipation, bowel regimen is added AUTO APPRENTICE MECHANIC consult is appreciated and they recommended outpatient follow-up for physiological cyst. Patient has been evaluated by urologist, neurology and orthopedic team evaluated the patient and her back pain is unrelated to neuro or spine disease Labs and medication were reviewed.. Continue same treatment. Continue with symptomatic treatment. Resume home medication. Monitor lytes and vitals. DVT and GI prophylaxis. Further recommendationsas per clinical course of the patient DVT prophylaxis: Subcutaneous heparin GI Prophylaxis: Pepcid Possible discharge in 24-48 hours and keep improvement
[2020-10-05] MEDS: HEPARIN SODIUM,PORCINE 5,000 UNIT/ML 1 ML VIAL SQ SCH ×2 (01:00→08:29)
[2020-10-05] MEDS: DOCUSATE 100 MG CAP PO SCH (08:27)
[2020-10-05] MEDS: NICOTINE 14MG/24HR PATCH TRANSDERM SCH (08:27)
[2020-10-05] MEDS: TAMSULOSIN 0.4 MG CAP.ER.24H PO SCH (08:27)
[2020-10-05] MEDS: buPROPion SR 150 MG TABLET.ER PO SCH (08:27)
[2020-10-05] MEDS: SODIUM CHLORIDE 0.9% 1,000 ML IV SCH (08:27)
[2020-10-05 08:42] VITALS: BP 96/66; PULSE 69; RESP 20; TEMP 98.5
[2020-10-05] MEDS ORDERED: FAMOTIDINE 20 MG/2 ML VIAL IV SCH (09:00)
--- NOTE | 2020-10-05 22:49 | P.DS ---
Providers Date of admission: 10/04/20 14:37 Attending physician: Coni Gruber Consults: 10/02/20 18:44 Consult Physician Stat Consulting Provider: Dasha Valera Consult Reason/Comments: Urinary retention, back pain Do you want consulting provider notified?: Already Contacted 10/03/20 11:33 Consult Physician Routine Consulting Provider: Stevie Latif Consult Reason/Comments: urinary retention with back pain;normal MRI Do you want consulting provider notified?: Yes 10/03/20 11:35 Consult Physician Routine Consulting Provider: Justin Chauhan Consult Reason/Comments: urinary retention with back pain; normal MRI Do you want consulting provider notified?: Yes 10/04/20 13:05 Consult Physician Routine Consulting Provider: Pascual Brady Consult Reason/Comments: ovarian cysts Do you want consulting provider notified?: Yes [facility]: Diagnoses: Acute urinary retention, of unknown etiology, thought secondary to constipation, resolved prior to discharge Urinary tract infection was suspected and ruled out Acute mild low back pain, secondary to urinary retention, completely resolved upon discharge non-obstructing 0.3 right renal calculi Physiologic right ovarian cyst, follow-up as an outpatient History of cleft lip and cleft palate Anxiety with depression Hospital course: Ms. Shirley is a 30-year-old female with the past medical history of ADHD, anxiety with depression, cleft palate coming in with a chief complaint of acute urinary retention. Patient has been in and out of the ER for the past couple of days for urinary retention. She states that this is the fourth time that she has come back with the same complaint. Couple of days back she came in and they put her on a Bolton's catheter and sent her home but she came back. So the patient had a CAT scan of the abdomen and pelvis on 10/01 showing nonobstructing 0.3 right renal calculi and a suspected 3.2 cm right ovarian cyst. On the presentation Patient complained of low back pain (orthopedic and neurologic causes will rule out by specialist). Patient found to have urinary retention and Bolton catheter was placed, urologist evaluated the patient, no cause for her respiratory tension was found, it is suspected due to constipation, patient was treated with laxatives and Flomax, Bolton catheter was discontinued and patient was able to void on her own with no difficulty with post void residual was 01 was checked On the day of discharge patient back pain and all other symptoms resolved and states she is back to her normal state except for continuing constipation, no more urinary symptoms, she is able to void easily with no problems, patient was eager to go home today Supervisor Fertilizer evaluated the patient for right ovarian cyst, physiologic cyst is suspected and patient was instructed to follow as an outpatient and she agrees Patient was cleared for discharge by urologist Problems and management plan were discussed with the patient and she verbalized understanding and acceptance Patient was found stable and can be discharged home however he needs follow-up as an outpatient. Patient was instructed to follow up with PCP Dr. Arroyo within one week and patient agrees Also patient was instructed to follow up with drying frame operator Dr. Kebede and with urologist Dr. Chauhan in 1-2 weeks and she agrees, staff will try to make appointments for her Gen: patient is a AAOx3, no distress CVS: S1-S2, RRR, no murmur Lungs: B/L CTA, no wheezing Abdomen: soft, no distention, no tenderness, positive bowel sounds Extremity: no leg edema or induration Time spent more than 35 minutes Patient Condition at Discharge: Stable Plan - Discharge Summary Discharge Rx Participant: Yes New Discharge Prescriptions: New Docusate [Colace] 100 mg PO BID #30 cap Tamsulosin [Flomax] 0.4 mg PO PC-BRKFST #30 cap.er.24h Sennosides [Senokot] 8.6 mg PO DAILY PRN #30 tab PRN Reason: Constipation buPROPion SR [Wellbutrin SR] 150 mg PO QAM tablet.er Continue Escitalopram [Lexapro] 15 mg PO DAILY ARIPiprazole [Abilify] 5 mg PO DAILY Discharge Medication List Escitalopram [Lexapro] 15 mg PO DAILY 03/26/20 [History] ARIPiprazole [Abilify] 5 mg PO DAILY 10/02/20 [History] Docusate [Colace] 100 mg PO BID #30 cap 10/05/20 [Rx] Sennosides [Senokot] 8.6 mg PO DAILY PRN #30 tab 10/05/20 [Rx] Tamsulosin [Flomax] 0.4 mg PO PC-BRKFST #30 cap.er.24h 10/05/20 [Rx] buPROPion SR [Wellbutrin SR] 150 mg PO QAM tablet.er 10/05/20 [Rx] Follow up Appointment(s)/Referral(s): Britta Arroyo III, MD [Primary Care Provider] - 10/06/20 3:30 pm Uli Khalil PAC [PHYSICIAN CORRECTIONAL OFFICER SERGEANT] - As Needed (Patient may follow-up with Uli Khalil PA-C or Dr. Perez Valera at [facility] on an as-needed basis following discharge.) Bonita Kebede DO [Doctor of Osteopathic Medicine] - 10/25/20 9:45 am (Follow- up of your ovarian cyst) Justin Chauhan MD [STAFF PHYSICIAN] - 10/19/20 1:40 pm (Urologist for your urinary retention) Activity/Diet/Wound Care/Special Instructions: continue diet as tolerated. fluids are encouraged. Self cath teaching has been done and supplies given for home if needed. Continue taking flomax daily and stool softeners until bowel movement. follow up with physicians as directed. Call with any questions comments concerns worsening returning symptoms, fever 101.1 or higher, not tolerating diet or fluids, unable to urinate or self cath on your own. Discharge Disposition: HOME SELF-CARE
== END 2020-10-05 10:40 | disposition home or self-care (01) | DRG 392 ==
LOC: EC 16:30 → 6PED 17:58 → OBSVTOIN 10-04 14:37
PROVIDERS: ADMIT Internal Medicine; ATTEND Internal Medicine
DX: K59.00 Constipation, unspecified (principal); R33.8 Other retention of urine; F41.9 Anxiety disorder, unspecified; F32.9 Major depressive disorder, single episode, unspecified; F90.9 Attention-deficit hyperactivity disorder, unspecified type; R31.9 Hematuria, unspecified; N83.201 Unspecified ovarian cyst, right side; N20.0 Calculus of kidney; R51.9 Headache, unspecified; F17.290 Nicotine dependence, other tobacco product, uncomplicated; M47.816 Spondylosis without myelopathy or radiculopathy, lumbar region; Z79.899 Other long term (current) drug therapy; Z98.51 Tubal ligation status; Z87.730 Personal history of (corrected) cleft lip and palate; Z98.890 Other specified postprocedural states; Z82.49 Family history of ischemic heart disease and other diseases of the circulatory system
CPT/HCPCS: 36415; 70450; 70544; 72148; 80048; 80053; 81001; 81003; 84145; 85025; 87086; 96361; 96374; 99284

== ENCOUNTER 2021-08-05 01:04 | Emergency (ER) | payer BC, OTHER ==
[2021-08-05 01:08] VITALS: BP 125/88; PULSE 81; RESP 19; TEMP 97.8
[2021-08-05] MEDS ORDERED: DEXAMETHASONE SOD PHOSPHATE 10 MG/ML 1 ML VIAL IM STA (01:17)
[2021-08-05] MEDS ORDERED: ACET/COD 300 MG/30 MG STARTER PACK 6 TAB BTL PO STA (01:17)
[2021-08-05] MEDS ORDERED: KETOROLAC 15 MG/ML 1 ML VIAL IM STA (01:17)
--- NOTE | 2021-08-05 01:19 | ED ---
General Adult HPI - General Chief complaint: ENT Stated complaint: RT earache Time Seen by Provider: 08/05/21 01:11 Source: patient Mode of arrival: ambulatory - History of Present Illness Initial comments: 30-year-old female patient presents to the emergency department today for evaluation of right ear pain. Patient states that she was evaluated early yesterday morning was diagnosed with swimmer's ear. States she was given eardrops which she has been using throughout the day. States it is not helping her pain. States she is unable to sleep. States she has had a lot of drainage from the ear. States it feels like is becoming more painful. Denies fever or chills. Denies any nasal congestion or drainage. Denies any other medical problems including diabetes or any other immunosuppressive conditions. Denies chance of . - Related Data Home Medications Medication Instructions Recorded Confirmed Escitalopram [Lexapro] 15 mg PO DAILY 03/26/20 10/02/20 ARIPiprazole [Abilify] 5 mg PO DAILY 10/02/20 10/02/20 Previous Rx's Medication Instructions Recorded Docusate [Colace] 100 mg PO BID #30 cap 10/05/20 Sennosides [Senokot] 8.6 mg PO DAILY PRN #30 tab 10/05/20 Tamsulosin [Flomax] 0.4 mg PO PC-BRKFST #30 cap.er.24h 10/05/20 buPROPion SR [Wellbutrin SR] 150 mg PO QAM tablet.er 10/05/20 Ibuprofen [Motrin] 600 mg PO Q8HR PRN #30 tab 08/05/21 Allergies Allergy/AdvReac Type Severity Reaction Status Date / Time No Known Allergies Allergy Verified 08/05/21 01:08 Review of Systems ROS Statement: Those systems with pertinent positive or pertinent negative responses have been documented in the HPI. ROS Other: All systems not noted in ROS Statement are negative. Past Medical History Past Medical History: No Reported History Additional Past Medical History / Comment(s): heavy periods, History of Any Multi-Drug Resistant Organisms: None Reported Past Surgical History: Cholecystectomy, Tubal Ligation, Uterine Ablation Additional Past Surgical History / Comment(s): cleft palate, Past Anesthesia/Blood Transfusion Reactions: No Reported Reaction Past Psychological History: ADD/ADHD, Anxiety, Depression Smoking Status: Vaper Past Alcohol Use History: Occasional Past Drug Use History: Marijuana - Past Family History Mother Family Medical History: No Reported History General Exam General appearance: alert, in no apparent distress, other (This is a well- developed, well-nourished adult female patient in no acute distress. Vital signs upon presentation are temperature 97.8F, pulse 81, respirations 19, blood pressure 125/88, pulse ox 98% on room air.) ENT exam: Present: normal exam, normal oropharynx, mucous membranes moist, TM's normal bilaterally. Absent: normal external ear exam (Right external ear is edematous, there is tragus tenderness. Right external auditory canal is swollen with erythema. It is patent I am able to visualize the TM.) Respiratory exam: Present: normal lung sounds bilaterally. Absent: respiratory distress, wheezes, rales, rhonchi, stridor Cardiovascular Exam: Present: regular rate, normal rhythm, normal heart sounds. Absent: systolic murmur, diastolic murmur, rubs, gallop, clicks Neurological exam: Present: alert, oriented X3, CN II-XII intact Psychiatric exam: Present: normal affect, normal mood Skin exam: Present: warm, dry, intact, normal color. Absent: rash Course Vital Signs 08/05/21 01:05 Temperature 97.8 F Pulse Rate 81 Respiratory 19 Rate Blood Pressure 125/88 O2 Sat by Pulse 98 Oximetry Medical Decision Making - Medical Decision Making 30-year-old female patient presents to the emergency department today for evaluation of right ear pain. Physical examination did reveal right external ear swelling, right external auditory canal swelling, ear drainage consistent with otitis externa. She has been taking Cortisporin HTC for one day. Not taking anything for pain. This is appropriate treatment we will continue the Cortisporin. She is given an IM dose of Decadron and Toradol here. Given starter pack for Tylenol with codeine. Instructed to apply warm compresses. Be discharged from the primary care physician for recheck in 1-2 days. Return parameters were discussed in detail. She verbalizes understanding and agrees with this plan. My attending is Dr. Ramsey. Disposition Clinical Impression: Right otitis externa Disposition: HOME SELF-CARE Condition: Good Instructions (If sedation given, give patient instructions): Otitis Externa (ED), Earache (ED) Additional Instructions: Take medications as directed. Follow-up with the primary care physician for recheck in 1-2 days. Return to the emergency department for any new, worsening, or concerning symptoms. Prescriptions: Ibuprofen [Motrin] 600 mg PO Q8HR PRN #30 tab PRN Reason: Pain Is patient prescribed a controlled substance at d/c from ED?: No Referrals: Britta Arroyo III, MD [Primary Care Provider] - 1-2 days Time of Disposition: 01:18
== END 2021-08-05 01:37 | disposition home or self-care (01) ==
LOC: EC 01:04
DX: H60.91 Unspecified otitis externa, right ear (principal); F17.290 Nicotine dependence, other tobacco product, uncomplicated
CPT/HCPCS: 99282; 96372; J1100; J1885